=== PATIENT | female | born 1940 | race Caucasian/White ===

== ENCOUNTER 2018-11-21 00:12 | Inpatient (IN) | payer MEDICARE, OTHER ==
[~2018-11-21] VITALS: Ht 162.6 cm; Wt 64.0 kg
[2018-11-21] MEDS ORDERED: FLUO15OI TP (00:57)
[2018-11-21] MEDS ORDERED: PANT40TA2 PO (00:57)
[2018-11-21] MEDS ORDERED: MAGN400O6 PO (00:57)
[2018-11-21] MEDS ORDERED: SULF500T8 PO (00:57)
[2018-11-21] MEDS ORDERED: TIZA4TAB4 PO (00:57)
[2018-11-21] MEDS ORDERED: PSYL1CAP2 PO (00:57)
[2018-11-21] MEDS ORDERED: GLYC30DR4 OP (00:57)
[2018-11-21] MEDS ORDERED: TRIA15OI11 TOP (00:57)
[2018-11-21] MEDS ORDERED: UBID100C13 PO (00:57)
[2018-11-21] MEDS ORDERED: ACET325C5 PO (00:57)
[2018-11-21] MEDS ORDERED: MIRA25TA PO (00:57)
[2018-11-21] MEDS ORDERED: IRBE150T30 PO (00:57)
[2018-11-21] MEDS ORDERED: HYDR-3026 PO (00:57)
[2018-11-21] MEDS ORDERED: TIMO5DRO31 OP (00:57)
[2018-11-21] MEDS ORDERED: POLY17PO4 PO (00:57)
[2018-11-21] MEDS ORDERED: TRAM50TA2 PO (00:57)
[2018-11-21] MEDS ORDERED: CLOP75TA33 PO (00:57)
[2018-11-21] MEDS ORDERED: METO25TA6 PO (00:57)
[2018-11-21] MEDS ORDERED: AZAT50TA PO (00:57)
[2018-11-21] MEDS ORDERED: ASPI81TA31 PO (00:57)
[2018-11-21] MEDS ORDERED: [UNRECOGNIZED DRUG - CODE] PO (00:57)
[2018-11-21] MEDS ORDERED: DULO30CA51 PO (00:57)
[2018-11-21 01:24] LABS: CARBON DIOXIDE 29 mmol/L (21-32); CHLORIDE 99 mmol/L (98-107); GLUCOSE 98 mg/dL (74-106); POTASSIUM 4.8 mmol/L (3.5-5.1); UREA NITROGEN, BLOOD 25 mg/dL (7-18)
[2018-11-21 01:25] LABS: BASOPHILS % (AUTO) 0.9 % (0.0-2.0); EOSINOPHILS # (AUTO) 0.1 K/uL (0.0-0.7); EOSINOPHILS % (AUTO) 2.3 % (0.0-7.0); HEMATOCRIT 31.3 % (31.2-41.9); HEMOGLOBIN 10.7 g/dL (10.9-14.3); LYMPHOCYTES % (AUTO) 18.5 % (20.5-51.5); MEAN CORPUSCULAR HEMOGLOBIN 30.9 uug (24.7-32.8); MEAN CORPUSCULAR HGB CONC 34 g/dL (32.3-35.6); MEAN CORPUSCULAR VOLUME 90.6 fL (75.5-95.3); MONOCYTES # (AUTO) 0.7 K/uL (2.0-10.0); MONOCYTES % (AUTO) 13.2 % (0.0-11.0); NEUTROPHILS # (AUTO) 3.6 K/uL (1.8-8.9); NEUTROPHILS % (AUTO) 65.1 % (38.5-71.5); PLATELET COUNT (AUTO) 274 K/uL (179-408); RED BLOOD CELL COUNT(AUTO) 3.45 MIL/uL (3.63-4.92); WHITE BLOOD COUNT (AUTO) 5.5 K/uL (3.8-11.8)
[2018-11-21 01:40] LABS: ALANINE AMINOTRANSFERASE 22 U/L (14-59); ALKALINE PHOSPHATASE 54 U/L (50-136); ASPARTATE AMINOTRANSFERASE 16 U/L (15-37); BILIRUBIN,DIRECT 0.1 mg/dL (0.0-0.2); BILIRUBIN,TOTAL 0.2 mg/dL (0.2-1.0); TOTAL PROTEIN, SERUM 6.4 g/dL (6.4-8.2)
[2018-11-21] MEDS ORDERED: IV NORMAL SALINE 1000 ML BAG IV ONE (01:45)
[2018-11-21 01:49] LABS: ACETAMINOPHEN < 2.0 ug/mL (10-30)
[2018-11-21 01:51] LABS: THYROID STIMULATING HORMONE 6.233 mIU/mL (0.358-3.740)
[2018-11-21] MEDS ORDERED: LORAZEPAM 2 MG/1 ML VIAL ONE (02:24)
[2018-11-21] MEDS ORDERED: LORAZEPAM 2 MG/1 ML VIAL IV ONE (02:30)
--- NOTE | 2018-11-21 02:49 | NUR ---
Call placed to [employer], Delfino Garrett (SANDY) will be paged.
[2018-11-21] MEDS ORDERED: ACETAMINOPHEN 325 MG TABLET PO PRN (03:00)
[2018-11-21] MEDS ORDERED: MORPHINE SULFATE 4 MG/1 ML DISP.SYRIN IV PRN (03:00)
[2018-11-21] MEDS ORDERED: ONDANSETRON 4 MG/2 ML VIAL IV PRN (03:00)
[2018-11-21] MEDS ORDERED: LORAZEPAM 2 MG/1 ML VIAL IV PRN (03:00)
[2018-11-21] MEDS ORDERED: Z GUARD REMEDY PASTE 57 GM TUBE TOP PRN ×2 (03:00→20:00)
[2018-11-21] MEDS ORDERED: MAGNESIUM HYDROXIDE 30 ML LIQUID UDC PO PRN (03:00)
[2018-11-21] MEDS ORDERED: HYDROCODONE/APAP 5-325MG TABLET PO PRN (03:00)
--- NOTE | 2018-11-21 03:20 | NUR ---
Received patient via gurney accompanied by Brock from ED. Patient awake, alert and oriented x 4. Noted IV access on right arm, 20G patent and intact. Transferred to bed safely, placed tele monitor. Oriented to unit. Bed kept in low position, side rails up x 2, call light within reach. Noted patient was just given Ativan IV at ED, patient feel asleep after we settling down in the bed. Will continue to monitor.
--- NOTE | 2018-11-21 03:36 | NUR ---
Pt. admitted to TELE, under care of Delfino Garrett (SANDY) Belongs List completed
[2018-11-21] MEDS: IV NS 1000 ML 1,000 ML IV PRN ×2 (04:08→22:23)
[2018-11-21 06:08] VITALS: BP 147/84
--- NOTE | 2018-11-21 06:33 | NUR ---
No output noted this shift. Bladder scan performed with result as 304ml. No bladder distention noted, no bladder pain and patient states she does not feel the urge to void still. Noted need to send urine for testing, will endorse to next shift nurse. Patient with IV fluid infusing well at right arm IV access, infusing well. No complaints made. Ensured safety and comfort.
[2018-11-21 07:28] LABS: BASOPHILS % (AUTO) 0.6 % (0.0-2.0); EOSINOPHILS # (AUTO) 0.1 K/uL (0.0-0.7); EOSINOPHILS % (AUTO) 2.2 % (0.0-7.0); HEMATOCRIT 29.9 % (31.2-41.9); HEMOGLOBIN 10.3 g/dL (10.9-14.3); LYMPHOCYTES # (AUTO) 1.2 K/uL (20.0-40.0); LYMPHOCYTES % (AUTO) 20.4 % (20.5-51.5); MEAN CORPUSCULAR HEMOGLOBIN 31.1 uug (24.7-32.8); MEAN CORPUSCULAR HGB CONC 35 g/dL (32.3-35.6); MEAN CORPUSCULAR VOLUME 90.2 fL (75.5-95.3); MONOCYTES # (AUTO) 0.8 K/uL (2.0-10.0); MONOCYTES % (AUTO) 12.7 % (0.0-11.0); NEUTROPHILS # (AUTO) 3.8 K/uL (1.8-8.9); NEUTROPHILS % (AUTO) 64.1 % (38.5-71.5); PLATELET COUNT (AUTO) 265 K/uL (179-408); RED BLOOD CELL COUNT(AUTO) 3.32 MIL/uL (3.63-4.92)
[2018-11-21 07:58] LABS: ALANINE AMINOTRANSFERASE 15 U/L (14-59); ALKALINE PHOSPHATASE 48 U/L (50-136); ASPARTATE AMINOTRANSFERASE 22 U/L (15-37); BILIRUBIN,TOTAL 0.2 mg/dL (0.2-1.0); CARBON DIOXIDE 22 mmol/L (21-32); CHLORIDE 99 mmol/L (98-107); CHOLESTEROL 203 mg/dL (<200); CREATININE 0.8 mg/dL (0.6-1.3); GLUCOSE 98 mg/dL (74-106); HDL CHOLESTEROL 41 mg/dL (40-60); MAGNESIUM 2.1 mg/dL (1.8-2.4); PHOSPHOROUS 4.6 mg/dL (2.5-4.9); POTASSIUM 4.7 mmol/L (3.5-5.1); TRIGLYCERIDES 99 MG/DL (30-150); UREA NITROGEN, BLOOD 22 mg/dL (7-18)
[2018-11-21] MEDS: ENOXAPARIN SODIUM 40 MG/0.4 ML DISP.SYRIN SQ SCH (08:52)
[2018-11-21] MEDS ORDERED: PANTOPRAZOLE SODIUM 40 MG VIAL IV SCH (09:00)
[2018-11-21] MEDS ORDERED: ASPIRIN 81 MG TAB.CHEW PO ONE ×2 (09:00)
[2018-11-21 11:51] VITALS: BP 132/69
--- NOTE | 2018-11-21 12:16 | NUR ---
Hernández inserted with 500cc of clear yellow urine draining. UA sent to lab.
[2018-11-21] MEDS ORDERED: POLYVINYL ALCOHOL OPHT DROPS 15 ML BOTTLE EACHEYE PRN (14:30)
[2018-11-21] MEDS ORDERED: TIZANIDINE HCL 4 MG TABLET PO SCH (14:30)
[2018-11-21 15:29] VITALS: BP 151/67
[2018-11-21] MEDS ORDERED: TRIAMCINOLONE ACET 0.1% OINT 15 GM TUBE TOP SCH (17:00)
[2018-11-21] MEDS ORDERED: FLUOCINONIDE 0.05% OINT 15 GM TUBE TP SCH (17:00)
[2018-11-21] MEDS ORDERED: hydrOXYzine HCL 25 MG TABLET PO PRN (17:00)
[2018-11-21] MEDS: SULFASALAZINE 500 MG TABLET PO SCH (17:07)
[2018-11-21 19:13] LABS: *BILIRUBIN,URIN NEGATIVE (NEGATIVE); *BLOOD, URINE NEGATIVE (NEGATIVE); *CLARITY,URINE CLEAR (CLEAR); *COLOR,URINE YELLOW (YELLOW); *KETONES,URINE NEGATIVE (NEGATIVE); *UROBILINOGEN,URINE 0.2 E.U./dl (NORMAL); LEUKOCYTE ESTERASE ,URINE NEGATIVE (NEGATIVE); NITRITE, URINE NEGATIVE (NEGATIVE); PH,URINE 5.5 (5.0-8.0); UGLUCOSE NEGATIVE (NEGATIVE)
[2018-11-21 19:20] LABS: MUCUS,URINE MODERATE /LPF (0-FEW); SQUAMOUS EPITHELIAL CELL,UR FEW /HPF (NONE SEEN); WBC,URINE 0-3 /HPF (0-3)
--- NOTE | 2018-11-21 19:45 | NUR ---
RECEIVED PATIENT IN BED ALERT AWAKE, NO SOB NO CHEST PAIN NOTED, TELE MONITOR SINUS RHYTHM AT THIS TIME, VALERO CATH DRAINING WITH YELLOW COLOR URINE IN MODERATE AMOUNT, REORIENT PATIENT NOT TO GET OUT OF BED BY HER SELF, REORIENT PATIENT WITH THE CALL LIGHT. CONT TO MONITOR.
[2018-11-21] MEDS: TIMOLOL MALEATE 0.5% OPHT DROP 5 ML BOTTLE EACHEYE SCH (20:09)
[2018-11-21] MEDS: METOPROLOL TARTRATE 25 MG TABLET PO SCH (20:10)
[2018-11-21] MEDS: TRAMADOL HCL 50 MG TABLET PO SCH (20:14)
[2018-11-21 20:17] VITALS: BP 151/73
[2018-11-22] VITALS (7 sets, daily range): BP systolic 95–172; BP diastolic 59–72
--- NOTE | 2018-11-22 05:53 | NUR ---
PATIENT SLEPT MOST OF THE NIGHT NO SOB NO CHEST PAIN, NO COMPLAIN OF PAIN AT THIS TIME, VALERO CATH PATENT DRAINING WITH YELLOW COLOR URINE IN MODERATE AMOUNT, TELE MONITOR SINUS RHYTHM AT THIS TIME. CONT TO MONITOR.
[2018-11-22 06:48] LABS: BASOPHILS % (AUTO) 0.7 % (0.0-2.0); EOSINOPHILS # (AUTO) 0.2 K/uL (0.0-0.7); EOSINOPHILS % (AUTO) 3.3 % (0.0-7.0); LYMPHOCYTES # (AUTO) 1.1 K/uL (20.0-40.0); LYMPHOCYTES % (AUTO) 20.3 % (20.5-51.5); MEAN CORPUSCULAR HGB CONC 34 g/dL (32.3-35.6); MEAN CORPUSCULAR VOLUME 89.9 fL (75.5-95.3); MONOCYTES # (AUTO) 0.6 K/uL (2.0-10.0); MONOCYTES % (AUTO) 10.8 % (0.0-11.0); NEUTROPHILS # (AUTO) 3.5 K/uL (1.8-8.9); NEUTROPHILS % (AUTO) 64.9 % (38.5-71.5); PLATELET COUNT (AUTO) 292 K/uL (179-408); RED BLOOD CELL COUNT(AUTO) 3.56 MIL/uL (3.63-4.92); WHITE BLOOD COUNT (AUTO) 5.3 K/uL (3.8-11.8)
[2018-11-22 06:53] LABS: CARBON DIOXIDE 28 mmol/L (21-32); CHLORIDE 102 mmol/L (98-107); CHOLESTEROL 205 mg/dL (<200); CREATININE 0.7 mg/dL (0.6-1.3); GLUCOSE 98 mg/dL (74-106); HDL CHOLESTEROL 41 mg/dL (40-60); PHOSPHOROUS 3.3 mg/dL (2.5-4.9); POTASSIUM 4.9 mmol/L (3.5-5.1); TRIGLYCERIDES 147 MG/DL (30-150); UREA NITROGEN, BLOOD 12 mg/dL (7-18); URIC ACID 2.4 mg/dL (2.6-6.0)
[2018-11-22 07:01] LABS: THYROID STIMULATING HORMONE 2.668 mIU/mL (0.358-3.740)
[2018-11-22] MEDS: IV NS 1000 ML 1,000 ML IV PRN ×2 (08:47→22:13)
[2018-11-22] MEDS: TIMOLOL MALEATE 0.5% OPHT DROP 5 ML BOTTLE EACHEYE SCH ×2 (08:49→20:47)
[2018-11-22] MEDS: AZATHIOPRINE 50 MG TABLET PO SCH (08:50)
[2018-11-22] MEDS: SULFASALAZINE 500 MG TABLET PO SCH ×2 (08:50→17:32)
[2018-11-22] MEDS: DULOXETINE 30 MG CAPSULE.DR PO SCH (08:50)
[2018-11-22] MEDS: ASPIRIN 81 MG TAB.CHEW PO SCH (08:50)
[2018-11-22] MEDS: CLOPIDOGREL 75 MG TABLET PO SCH (08:51)
[2018-11-22] MEDS: MIRALAX 17 GM POWD.PACK PO SCH (08:51)
[2018-11-22] MEDS: PSYLLIUM SEED PACKET PO SCH (08:51)
[2018-11-22] MEDS: PANTOPRAZOLE SODIUM 40 MG TABLET.DR PO SCH (08:52)
[2018-11-22] MEDS: MULTIVITAMINS,THERAPEUTIC TABLET PO SCH (08:52)
[2018-11-22] MEDS: METOPROLOL TARTRATE 25 MG TABLET PO SCH ×2 (08:54→20:48)
[2018-11-22] MEDS ORDERED: ASPIRIN 81 MG TAB.CHEW PO SCH (09:00)
[2018-11-22] MEDS: ENOXAPARIN SODIUM 40 MG/0.4 ML DISP.SYRIN SQ SCH (09:05)
[2018-11-22] MEDS: LOSARTAN POTASSIUM 50 MG TABLET PO SCH (14:47)
--- NOTE | 2018-11-22 19:01 | NUR ---
PATIENT IS LYING IN BED AWAKE AND ALERT WITH PERIODS OF CONFUSION. PATIENT HAS LEFT FOREARM 22G RUNNING NS AT 75ML/HR. NO DISTRESS NOTED. PATIENT IS BED CONFINED WITH A VALERO CATHETER IN PLACE DRAINING. PATIENT IS ON ROOM AIR, NO OXYGEN NEEDED. CT RESULTS FROM [facility] ARE IN CHART, RECEIVED VIA FAX FOR REFINERY SUPERINTENDENT [place] TO REVIEW PLEASE ENDORSE TO NEXT SHIFT.
--- NOTE | 2018-11-22 20:00 | NUR ---
RECEIVED PATIENT AWAKE IN BED. A/O X2. FORGETFUL AT TIMES. DENIES PAIN AT THIS TIME. NO RESP. DISTRESS NOTED. VSS. IVF INFUSING WELL TO LEFT FA. BED ALARM ON FOR SAFETY. USHA Addendum: 11/23/18 at 0343 by SEKOU CONTRERAS LVN CALL LIGHT IN REACH. ALL NEEDS ATTENDED. WILL CONTINUE TO MONITOR AND ASSESS.
[2018-11-22] MEDS: TRAMADOL HCL 50 MG TABLET PO SCH (20:48)
[2018-11-23 05:04] VITALS: BP 120/72
--- NOTE | 2018-11-23 06:23 | NUR ---
PATIENT ASLEEP IN BED. EASILY AROUSABLE. SLEPT WELL. IVF INFUSING WELL. BED ALARM ON. CALL LIGHT IN REACH. ALL NEEDS ATTENDED. WILL CONTINUE TO MONITOR.
[2018-11-23 06:32] LABS: BASOPHILS % (AUTO) 0.8 % (0.0-2.0); EOSINOPHILS # (AUTO) 0.2 K/uL (0.0-0.7); EOSINOPHILS % (AUTO) 3.5 % (0.0-7.0); HEMATOCRIT 28.9 % (31.2-41.9); HEMOGLOBIN 10.1 g/dL (10.9-14.3); LYMPHOCYTES # (AUTO) 1.1 K/uL (20.0-40.0); LYMPHOCYTES % (AUTO) 22.3 % (20.5-51.5); MEAN CORPUSCULAR HEMOGLOBIN 31.2 uug (24.7-32.8); MEAN CORPUSCULAR HGB CONC 35 g/dL (32.3-35.6); MEAN CORPUSCULAR VOLUME 89.4 fL (75.5-95.3); MONOCYTES # (AUTO) 0.6 K/uL (2.0-10.0); MONOCYTES % (AUTO) 12.7 % (0.0-11.0); NEUTROPHILS # (AUTO) 2.9 K/uL (1.8-8.9); NEUTROPHILS % (AUTO) 60.7 % (38.5-71.5); PLATELET COUNT (AUTO) 268 K/uL (179-408); RED BLOOD CELL COUNT(AUTO) 3.23 MIL/uL (3.63-4.92); WHITE BLOOD COUNT (AUTO) 4.8 K/uL (3.8-11.8)
[2018-11-23 06:42] LABS: CARBON DIOXIDE 30 mmol/L (21-32); CHLORIDE 101 mmol/L (98-107); CREATININE 0.6 mg/dL (0.6-1.3); GLUCOSE 110 mg/dL (74-106); MAGNESIUM 2.1 mg/dL (1.8-2.4); PHOSPHOROUS 2.9 mg/dL (2.5-4.9); POTASSIUM 4.9 mmol/L (3.5-5.1); UREA NITROGEN, BLOOD 10 mg/dL (7-18)
[2018-11-23] MEDS: SULFASALAZINE 500 MG TABLET PO SCH ×2 (08:07→16:46)
[2018-11-23] MEDS: ASPIRIN 81 MG TAB.CHEW PO SCH (08:07)
[2018-11-23] MEDS: TIMOLOL MALEATE 0.5% OPHT DROP 5 ML BOTTLE EACHEYE SCH ×2 (08:07→21:42)
[2018-11-23] MEDS: DULOXETINE 30 MG CAPSULE.DR PO SCH (08:08)
[2018-11-23] MEDS: AZATHIOPRINE 50 MG TABLET PO SCH (08:08)
[2018-11-23] MEDS: PSYLLIUM SEED PACKET PO SCH (08:08)
[2018-11-23] MEDS: METOPROLOL TARTRATE 25 MG TABLET PO SCH ×2 (08:08→21:44)
[2018-11-23] MEDS: LOSARTAN POTASSIUM 50 MG TABLET PO SCH (08:08)
[2018-11-23] MEDS: CLOPIDOGREL 75 MG TABLET PO SCH (08:09)
[2018-11-23] MEDS: PANTOPRAZOLE SODIUM 40 MG TABLET.DR PO SCH (08:09)
[2018-11-23] MEDS: MIRALAX 17 GM POWD.PACK PO SCH (08:09)
[2018-11-23] MEDS: MULTIVITAMINS,THERAPEUTIC TABLET PO SCH (08:09)
[2018-11-23] MEDS: ENOXAPARIN SODIUM 40 MG/0.4 ML DISP.SYRIN SQ SCH (08:16)
[2018-11-23 10:49] VITALS: BP_SYST 163; BP_SYST 175; BP_SYST 178; BP_DIAS 65; BP_DIAS 67; BP_DIAS 73
[2018-11-23] MEDS: IV NS 1000 ML 1,000 ML IV PRN (11:17)
[2018-11-23] MEDS: DOCUSATE SODIUM 100 MG CAPSULE PO SCH ×2 (11:31→16:46)
[2018-11-23 11:44] VITALS: BP 118/73
[2018-11-23 15:42] VITALS: BP 114/68
--- NOTE | 2018-11-23 18:52 | NUR ---
PATIENT IS LYING IN BED, BED IS IN LOW LOCKED POSITION AND CALL LIGHT IS WITHIN REACH. PATIENT IS HAVING PERIODS OF CONFUSION, REORIENTED PATIENT TO SURROUNDINGS. PATIENT IS STABLE.
[2018-11-23 20:00] VITALS: BP 170/52
[2018-11-23] MEDS: TRAMADOL HCL 50 MG TABLET PO SCH (21:43)
[2018-11-24] MEDS: IV NS 1000 ML 1,000 ML IV PRN (00:43)
[2018-11-24 04:00] VITALS: BP 115/73
[2018-11-24 06:36] LABS: BASOPHILS % (AUTO) 0.7 % (0.0-2.0); EOSINOPHILS # (AUTO) 0.2 K/uL (0.0-0.7); EOSINOPHILS % (AUTO) 3.5 % (0.0-7.0); HEMATOCRIT 32.3 % (31.2-41.9); HEMOGLOBIN 11.3 g/dL (10.9-14.3); LYMPHOCYTES # (AUTO) 1.1 K/uL (20.0-40.0); LYMPHOCYTES % (AUTO) 19.2 % (20.5-51.5); MEAN CORPUSCULAR HEMOGLOBIN 31.3 uug (24.7-32.8); MEAN CORPUSCULAR HGB CONC 35 g/dL (32.3-35.6); MEAN CORPUSCULAR VOLUME 89.3 fL (75.5-95.3); MONOCYTES # (AUTO) 0.7 K/uL (2.0-10.0); MONOCYTES % (AUTO) 12.5 % (0.0-11.0); NEUTROPHILS # (AUTO) 3.6 K/uL (1.8-8.9); NEUTROPHILS % (AUTO) 64.1 % (38.5-71.5); PLATELET COUNT (AUTO) 295 K/uL (179-408); RED BLOOD CELL COUNT(AUTO) 3.62 MIL/uL (3.63-4.92); WHITE BLOOD COUNT (AUTO) 5.6 K/uL (3.8-11.8)
[2018-11-24 06:52] LABS: CARBON DIOXIDE 27 mmol/L (21-32); CHLORIDE 96 mmol/L (98-107); CREATININE 0.6 mg/dL (0.6-1.3); GLUCOSE 89 mg/dL (74-106); POTASSIUM 4.3 mmol/L (3.5-5.1); UREA NITROGEN, BLOOD 8 mg/dL (7-18)
[2018-11-24 07:56] VITALS: BP 164/78
[2018-11-24] MEDS: LOSARTAN POTASSIUM 50 MG TABLET PO SCH (08:01)
[2018-11-24] MEDS: METOPROLOL TARTRATE 25 MG TABLET PO SCH (08:01)
[2018-11-24] MEDS: ASPIRIN 81 MG TAB.CHEW PO SCH (08:01)
[2018-11-24] MEDS: TIMOLOL MALEATE 0.5% OPHT DROP 5 ML BOTTLE EACHEYE SCH (08:01)
[2018-11-24] MEDS: DOCUSATE SODIUM 100 MG CAPSULE PO SCH ×2 (08:02→16:13)
[2018-11-24] MEDS: MULTIVITAMINS,THERAPEUTIC TABLET PO SCH (08:02)
[2018-11-24] MEDS: DULOXETINE 30 MG CAPSULE.DR PO SCH (08:02)
[2018-11-24] MEDS: CLOPIDOGREL 75 MG TABLET PO SCH (08:02)
[2018-11-24] MEDS: PANTOPRAZOLE SODIUM 40 MG TABLET.DR PO SCH (08:02)
[2018-11-24] MEDS: SULFASALAZINE 500 MG TABLET PO SCH ×2 (08:03→16:13)
[2018-11-24] MEDS: PSYLLIUM SEED PACKET PO SCH (08:04)
[2018-11-24] MEDS: AZATHIOPRINE 50 MG TABLET PO SCH (08:04)
[2018-11-24] MEDS: MIRALAX 17 GM POWD.PACK PO SCH (08:05)
[2018-11-24] MEDS: ENOXAPARIN SODIUM 40 MG/0.4 ML DISP.SYRIN SQ SCH (08:06)
[2018-11-24] MEDS ORDERED: DOCU100C36 PO (10:25)
[2018-11-24 11:25] VITALS: BP 127/62
--- NOTE | 2018-11-24 14:30 | NUR ---
PATIENT DISCHARGED TO ARU. D/C INSTRUCTIONS/PT TEACHINGS PROVIDED. PATIENT VERBALIZED UNDERSTANDING. BELONGING LIST SIGNED AND ACCOUNTED FOR.
[2018-11-24 15:30] VITALS: BP 115/52
--- NOTE | 2018-11-24 16:30 | NUR ---
REPORT GIVEN TO RN SOLU.
--- NOTE | 2018-11-24 16:45 | NUR ---
PATIENT DISCHARGED TO ARU. PT LEFT THE UNIT VIA WHEELCHAIR, ACCOMPANIED BY DRIVER GUIDE AND RN.
== END 2018-11-24 16:35 | DRG 683 ==
LOC: ER 00:15 → TELE 03:03 → MED 11-22 11:38
PROVIDERS: ADMIT Nurse Practitioner Acute Care; ATTEND Nurse Practitioner Acute Care
DX: N17.0 Acute kidney failure with tubular necrosis (principal); G91.9 Hydrocephalus, unspecified; E87.1 Hypo-osmolality and hyponatremia; E44.1 Mild protein-calorie malnutrition; G93.49 Other encephalopathy; S00.03XD Contusion of scalp, subsequent encounter; W19.XXXD Unspecified fall, subsequent encounter; Z98.2 Presence of cerebrospinal fluid drainage device; M06.9 Rheumatoid arthritis, unspecified; Z88.0 Allergy status to penicillin; E78.5 Hyperlipidemia, unspecified; Z68.24 Body mass index [BMI] 24.0-24.9, adult; I25.10 Atherosclerotic heart disease of native coronary artery without angina pectoris; D63.8 Anemia in other chronic diseases classified elsewhere; F03.90 Unspecified dementia, unspecified severity, without behavioral disturbance, psychotic disturbance, mood disturbance, and anxiety; K59.00 Constipation, unspecified; I95.1 Orthostatic hypotension; M81.0 Age-related osteoporosis without current pathological fracture; R29.6 Repeated falls; I35.0 Nonrheumatic aortic (valve) stenosis; E86.1 Hypovolemia; M19.90 Unspecified osteoarthritis, unspecified site; Z79.02 Long term (current) use of antithrombotics/antiplatelets; Z79.82 Long term (current) use of aspirin
CPT/HCPCS: 36415; 70030-TC; 71045; 83735; 84100; 84300; 84443; 84550; 85025; 85730; 87086; 93005; 93307; 97110; 97116; 97165; 97530; 97535; A4663; C9113; G0378; G0480-TC; J1650; J2060; J7030; J7500

== ENCOUNTER 2018-11-24 12:39 | Inpatient (IN) | payer MEDICARE, OTHER ==
[~2018-11-24] VITALS: Ht 162.6 cm; Wt 64.0 kg
[~2018-11-24 12:39] MED LIST: ACET325C5 PO; ASPI81TA31 PO; AZAT50TA PO; CLOP75TA33 PO; DOCU100C36 PO; DULO30CA51 PO; FLUO15OI TP; GLYC30DR4 OP; HYDR-3026 PO; IRBE150T30 PO; MAGN400O6 PO; METO25TA6 PO; MIRA25TA PO; PANT40TA2 PO; POLY17PO4 PO; PSYL1CAP2 PO; SULF500T8 PO; TIMO5DRO31 OP; TIZA4TAB4 PO; TRAM50TA2 PO; TRIA15OI11 TOP; UBID100C13 PO; [UNRECOGNIZED DRUG - CODE] PO
[2018-11-24] MEDS ORDERED: Z GUARD REMEDY PASTE 57 GM TUBE TOP PRN ×2 (17:00→17:15)
--- NOTE | 2018-11-24 18:40 | NUR ---
patient arrived to unit at 1640 from Med-surg via wheelchair, Vitals: 158/75, 68 heart rate, 100% O2 on room air, 17 respirations, Alert and orient to self only redness noted to the right heel, picture taken, no complaints of pain, no signs of distress noted, call light in reach, MD Ruano and SANDY Love notified of patients arrival, shook catheter patent, IV noted to left wrist,
[2018-11-24] MEDS ORDERED: hydrOXYzine HCL 25 MG TABLET PO PRN (19:15)
[2018-11-24] MEDS ORDERED: Medication Not On Formulary EA (Acetaminophen (Tylenol) 650 MG) PO SCH (19:15)
[2018-11-24 19:39] VITALS: BP 155/68
[2018-11-24 20:00] VITALS: BP 125/68
[2018-11-24] MEDS ORDERED: POLYVINYL ALCOHOL OPHT DROPS 15 ML BOTTLE EACHEYE PRN (20:00)
[2018-11-24] MEDS ORDERED: ACETAMINOPHEN 650 MG/20.3 ML LIQUID UDC PO PRN (20:00)
[2018-11-24] MEDS ORDERED: [UNRECOGNIZED DRUG - OTHER] OP SCH (21:00)
[2018-11-24] MEDS ORDERED: PROPYLENE GLYCOL OP SCH (21:00)
[2018-11-24] MEDS ORDERED: GLYCERIN OP SCH (21:00)
[2018-11-24] MEDS: TIMOLOL MALEATE 0.5% OPHT DROP 5 ML BOTTLE EACHEYE SCH (21:15)
[2018-11-25] MEDS: PANTOPRAZOLE SODIUM 40 MG TABLET.DR PO SCH (06:27)
[2018-11-25] MEDS: ACETAMINOPHEN 325 MG TABLET PO PRN ×3 (06:27→23:04)
[2018-11-25] MEDS: MAGNESIUM HYDROXIDE 30 ML LIQUID UDC PO PRN (06:36)
[2018-11-25 06:41] VITALS: BP 136/65
--- NOTE | 2018-11-25 06:52 | NUR ---
Patient slept comfortably throughout the night. No acute distress. No SOB. No c/o pain and discomfort. Hernández catheter patent and intact. Draining jh yellow urine. Kept clean and dry. All needs attended to promptly. Call light within reach. Will continue to monitor.
[2018-11-25] MEDS: ASPIRIN 81 MG TAB.CHEW PO SCH (08:49)
[2018-11-25] MEDS: DOCUSATE SODIUM 100 MG CAPSULE PO SCH ×2 (08:49→17:03)
[2018-11-25] MEDS: CLOPIDOGREL 75 MG TABLET PO SCH (08:49)
[2018-11-25] MEDS: METOPROLOL TARTRATE 25 MG TABLET PO SCH ×2 (08:50→17:00)
[2018-11-25] MEDS: MULTIVITAMINS,THERAPEUTIC TABLET PO SCH (08:50)
[2018-11-25] MEDS: TIMOLOL MALEATE 0.5% OPHT DROP 5 ML BOTTLE EACHEYE SCH ×2 (08:50→21:14)
[2018-11-25] MEDS: DULOXETINE 30 MG CAPSULE.DR PO SCH (08:50)
[2018-11-25] MEDS: MIRALAX 17 GM POWD.PACK PO SCH (08:50)
[2018-11-25] MEDS: AZATHIOPRINE 50 MG TABLET PO SCH (08:51)
[2018-11-25] MEDS: SULFASALAZINE 500 MG TABLET PO SCH ×2 (08:51→17:03)
[2018-11-25] MEDS: TIZANIDINE HCL 4 MG TABLET PO PRN (08:51)
[2018-11-25] MEDS: PSYLLIUM SEED PACKET PO SCH (08:53)
[2018-11-25 09:00] VITALS: BP 129/78
[2018-11-25] MEDS ORDERED: [UNRECOGNIZED DRUG - OTHER] PO SCH (09:00)
[2018-11-25] MEDS ORDERED: TRIAMCINOLONE ACET 0.1% OINT 15 GM TUBE TOP SCH (09:00)
[2018-11-25] MEDS ORDERED: CA CARBONATE PO SCH (09:00)
[2018-11-25] MEDS ORDERED: FLUOCINONIDE 0.05% OINT 15 GM TUBE TP SCH (09:00)
[2018-11-25] MEDS ORDERED: PSYLLIUM HUSK PO SCH (09:00)
[2018-11-25] MEDS ORDERED: MULTIVITAMIN PO SCH (09:00)
--- NOTE | 2018-11-25 09:00 | NUR ---
Received patient, awake, alert x3. Not in any form of distress, denies any pain at the moment. With intact G22 over left forearm. With intact and patent Hernández Catheter draining dark yellow colored urine. Denies any dizziness, headache or chest pains. Baseline LOC, no confusion noted at this time.
[2018-11-25] MEDS: LOSARTAN POTASSIUM 50 MG TABLET PO SCH (10:17)
--- NOTE | 2018-11-25 10:45 | NUR ---
Up with physical therapy, tolerating well. With tolerable pain over lower back and lower extremities. PRN Zanaflex given. Decreased blood pressure, 99/59, held Cozaar for now, patient asymptomatic, no dizziness, SOB or chest pains noted.
--- NOTE | 2018-11-25 13:45 | NUR ---
Patient claimed she was in pain and cannot have anything to eat at the moment. Encouraged small frequent meals. PRN Tylenol given.
[2018-11-25] MEDS: LIDOCAINE 5% PATCH TD SCH (13:50)
[2018-11-25 17:00] VITALS: BP 105/54
--- NOTE | 2018-11-25 18:27 | NUR ---
Patient complained of pain repositioned and offered warm pack. Patient still with poor oral intake and refused dinner. Encouraged to drink fluids as tolerated and explained importance of good oral intake, but patient still refused dinner.
--- NOTE | 2018-11-25 19:00 | NUR ---
Resting comfortably in bed. Denies any pain/discomforts at this time. She claimed hot pack on her back is sufficient to relieve pain at this time. Removed bedpan, no BM. Instructed patient to call when needed. F/C intact, patent draining clear yellow urine output. Safety measure and fall precaution maintained. Continue care as planned.
[2018-11-25 19:57] VITALS: BP 154/64
[2018-11-25] MEDS: TRAMADOL HCL 50 MG TABLET PO PRN (21:15)
--- NOTE | 2018-11-25 21:17 | NUR ---
Complaint of low back pain, Tramadol given as ordered and needed. Will monitor.
--- NOTE | 2018-11-25 22:20 | NUR ---
Sleeping at this time. Pain medication effective.
--- NOTE | 2018-11-25 23:05 | NUR ---
Complaint of headache, Tylenol given as ordered and needed. Will monitor.
--- NOTE | 2018-11-26 | NUR ---
Sleeping soundly on rounds. No s/s of pain/discomforts at this time.
[2018-11-26] MEDS: ACETAMINOPHEN 325 MG TABLET PO PRN (05:26)
[2018-11-26 05:33] VITALS: BP 117/72
--- NOTE | 2018-11-26 05:58 | NUR ---
Shift End Report: VS WNL. Slept in between care. Complaint of headache once, and low back pain twice with moderate effect. Instructed patient proper body alignment and positioning. All needs attended and met. F/C intact and patent with clear jh urine output. No fall/injury. Continue care as planned. No significant event reported all night.
[2018-11-26] MEDS: PANTOPRAZOLE SODIUM 40 MG TABLET.DR PO SCH (06:18)
[2018-11-26 07:50] LABS: CARBON DIOXIDE 28 mmol/L (21-32); CHLORIDE 98 mmol/L (98-107); CREATININE 0.7 mg/dL (0.6-1.3); GLUCOSE 101 mg/dL (74-106); POTASSIUM 4.6 mmol/L (3.5-5.1); UREA NITROGEN, BLOOD 17 mg/dL (7-18)
[2018-11-26 08:00] VITALS: BP 130/72
[2018-11-26] MEDS: LIDOCAINE 5% PATCH TD SCH (08:45)
[2018-11-26] MEDS: DULOXETINE 30 MG CAPSULE.DR PO SCH (08:46)
[2018-11-26] MEDS: ASPIRIN 81 MG TAB.CHEW PO SCH (08:46)
[2018-11-26] MEDS: DOCUSATE SODIUM 100 MG CAPSULE PO SCH ×2 (08:47→16:31)
[2018-11-26] MEDS: MULTIVITAMINS,THERAPEUTIC TABLET PO SCH (08:47)
[2018-11-26] MEDS: METOPROLOL TARTRATE 25 MG TABLET PO SCH ×2 (08:47→16:31)
[2018-11-26] MEDS: CLOPIDOGREL 75 MG TABLET PO SCH (08:47)
[2018-11-26] MEDS: SULFASALAZINE 500 MG TABLET PO SCH ×2 (08:48→16:30)
[2018-11-26] MEDS: PSYLLIUM SEED PACKET PO SCH (08:48)
[2018-11-26] MEDS: MIRALAX 17 GM POWD.PACK PO SCH (08:48)
[2018-11-26] MEDS: TIMOLOL MALEATE 0.5% OPHT DROP 5 ML BOTTLE EACHEYE SCH ×2 (08:49→20:11)
[2018-11-26] MEDS: AZATHIOPRINE 50 MG TABLET PO SCH (08:49)
[2018-11-26] MEDS: LOSARTAN POTASSIUM 50 MG TABLET PO SCH (08:49)
--- NOTE | 2018-11-26 12:37 | NUR ---
Received patient awake in stable condition. On therapy for ambulation and ADL ability. Continue pain management for chronic back pain. not in distress. will continue monitor
--- NOTE | 2018-11-26 13:22 | NUR ---
INTERDISCIPLINARY TEAM CONFERENCE
[2018-11-26 17:33] VITALS: BP 115/68
--- NOTE | 2018-11-26 19:30 | NUR ---
Patient received in bed. Alert and verbally responsive. Able to make needs known. Denies any pain and discomfort. No acute distress. No SOB. Kept clean and dry. Hernández catheter patent and intact. Draining clear yellow urine. All needs attended to promptly. Call light within reach. Will continue to monitor.
[2018-11-26 20:00] VITALS: BP_SYST 165; BP_SYST 172; BP_DIAS 65; BP_DIAS 70
--- NOTE | 2018-11-26 20:00 | NUR ---
Patient's BP noted to be 172/70 with HR 67 on Left arm. BP on R arm noted to be 165/65, HR 66. Patient verbalizes she feels fine. Asymptomatic at this time. No c/o N/V, no dizziness, No c/o pain and discomfort. No acute distress. Called EPIC, awaiting call back from MILITARY POLICE OFFICER application trainer. All needs attended to promptly. Call light within reach. Will continue to monitor.
[2018-11-26] MEDS: DONEPEZIL 5 MG TABLET PO SCH (20:10)
[2018-11-26 23:15] VITALS: BP 123/73
[2018-11-26] MEDS ORDERED: hydrALAZINE HCL 25 MG TABLET PO ONE (23:15)
--- NOTE | 2018-11-26 23:15 | NUR ---
Spoke with Dale Love PLASTIC PARTS FABRICATOR TRIMMER. Made aware of patient's BP with new orders for Hydralazine 25mg PO x1. PLASTIC PARTS FABRICATOR TRIMMER made aware that patient is now in bed and asleep. Had no c/o pain and discomfort. No N/V, No c/o dizziness. Per PLASTIC PARTS FABRICATOR TRIMMER to just re-check BP again before giving Hydralazine. Re-checked BP and it is now 123/73, HR 80. Patient is sleeping comfortably. Hydralazine not given. Will continue to monitor patient.
[2018-11-27 04:00] VITALS: BP 139/62
[2018-11-27] MEDS: PANTOPRAZOLE SODIUM 40 MG TABLET.DR PO SCH (06:33)
[2018-11-27 07:40] VITALS: BP 159/61
[2018-11-27] MEDS: DULOXETINE 30 MG CAPSULE.DR PO SCH (08:43)
[2018-11-27] MEDS: CLOPIDOGREL 75 MG TABLET PO SCH (08:43)
[2018-11-27] MEDS: MULTIVITAMINS,THERAPEUTIC TABLET PO SCH (08:43)
[2018-11-27] MEDS: LOSARTAN POTASSIUM 50 MG TABLET PO SCH (08:43)
[2018-11-27] MEDS: ASPIRIN 81 MG TAB.CHEW PO SCH (08:44)
[2018-11-27] MEDS: DOCUSATE SODIUM 100 MG CAPSULE PO SCH ×2 (08:44→17:05)
[2018-11-27] MEDS: METOPROLOL TARTRATE 25 MG TABLET PO SCH ×2 (08:44→17:11)
[2018-11-27] MEDS: MIRALAX 17 GM POWD.PACK PO SCH (08:45)
[2018-11-27] MEDS: AZATHIOPRINE 50 MG TABLET PO SCH (08:45)
[2018-11-27] MEDS: TIMOLOL MALEATE 0.5% OPHT DROP 5 ML BOTTLE EACHEYE SCH ×2 (08:47→20:46)
[2018-11-27] MEDS: LIDOCAINE 5% PATCH TD SCH (08:47)
[2018-11-27] MEDS: PSYLLIUM SEED PACKET PO SCH (08:47)
[2018-11-27] MEDS: SULFASALAZINE 500 MG TABLET PO SCH ×2 (08:47→17:05)
--- NOTE | 2018-11-27 09:52 | NUR ---
Received patient awake in bed in stable condition. Seen and examined by SANDY Love with ordered remove shook catheter and monitor urine output. Continue therapy for ambulation, ADL and transfer ability. not in distress. will continue monitor
--- NOTE | 2018-11-27 12:57 | NUR ---
F/C D/C ORDERED. ALISON WELL .REMINDED HER TO CALL FOR ASSIST TO GO TO THE BR. 200ML RODERICK COLORED URINE TAKEN AWAY. IV ALSO REMOVED #22G CATHETER REMOVED INTACT. NO INFILTRATION/PHLEBITIS NOTED
[2018-11-27] MEDS ORDERED: hydrALAZINE HCL 25 MG TABLET PO ONE (18:45)
--- NOTE | 2018-11-27 18:49 | NUR ---
B/P ELEVATED PUMP SERVICE SUPERVISOR BATES CALLED GAVE ORDER FOR HYDRALAZINE 25MG NOW.
--- NOTE | 2018-11-27 19:00 | NUR ---
Watching TV during initial rounds. AAO x 2-3. Reorient on time at this time. Denies any pain/discomforts. Safety measures and fall precaution maintained. Continue current plan of care.
[2018-11-27 20:00] VITALS: BP 116/71
[2018-11-27] MEDS: DONEPEZIL 5 MG TABLET PO SCH (20:46)
--- NOTE | 2018-11-27 21:26 | NUR ---
Assisted patient to the bathroom with walker. Patient not steady on her feet. Not safe to ambulate yet. Poor tolerance /endurance on activity especially on ambulation. Bedside commode provided for elimination and safety due to poor endurance on ambulation. Patient refused bedpan/diaper offered. Close supervision /monitoring required for safety.
[2018-11-28] VITALS (8 sets, daily range): BP systolic 142–185; BP diastolic 52–86
[2018-11-28] MEDS: ACETAMINOPHEN 325 MG TABLET PO PRN ×2 (03:06→15:43)
--- NOTE | 2018-11-28 06:00 | NUR ---
Patient finally agreed using the bedpan. Voided well. Self help encouraged and able to return demonstration.
--- NOTE | 2018-11-28 06:13 | NUR ---
Shift End Report: Slept late. SBP slightly elevated on the 150's. Denies s/s of Hypertension. No complaint of pain/discomforts. No fall/injury. All needs attended and met. No significant event reported all night. Continue current rehab plan of care.
[2018-11-28] MEDS: PANTOPRAZOLE SODIUM 40 MG TABLET.DR PO SCH (06:19)
[2018-11-28] MEDS: CLOPIDOGREL 75 MG TABLET PO SCH (07:49)
[2018-11-28] MEDS: ASPIRIN 81 MG TAB.CHEW PO SCH (07:49)
[2018-11-28] MEDS: TIMOLOL MALEATE 0.5% OPHT DROP 5 ML BOTTLE EACHEYE SCH ×2 (07:49→21:12)
[2018-11-28] MEDS: METOPROLOL TARTRATE 25 MG TABLET PO SCH ×2 (07:49→17:10)
[2018-11-28] MEDS: LOSARTAN POTASSIUM 50 MG TABLET PO SCH (07:49)
[2018-11-28] MEDS: MULTIVITAMINS,THERAPEUTIC TABLET PO SCH (09:51)
[2018-11-28] MEDS: SULFASALAZINE 500 MG TABLET PO SCH ×2 (09:51→17:10)
[2018-11-28] MEDS: DULOXETINE 30 MG CAPSULE.DR PO SCH (09:51)
[2018-11-28] MEDS: TIZANIDINE HCL 4 MG TABLET PO PRN (09:51)
[2018-11-28] MEDS: DOCUSATE SODIUM 100 MG CAPSULE PO SCH ×2 (09:52→17:10)
[2018-11-28] MEDS: AZATHIOPRINE 50 MG TABLET PO SCH (09:52)
[2018-11-28] MEDS: PSYLLIUM SEED PACKET PO SCH (09:52)
[2018-11-28] MEDS: LIDOCAINE 5% PATCH TD SCH (09:52)
[2018-11-28] MEDS: MIRALAX 17 GM POWD.PACK PO SCH (09:52)
[2018-11-28] MEDS ORDERED: LOSARTAN POTASSIUM 50 MG TABLET PO ONE (12:30)
[2018-11-28] MEDS: hydrALAZINE HCL 25 MG TABLET PO PRN (17:09)
[2018-11-28] MEDS: DONEPEZIL 5 MG TABLET PO SCH (21:12)
[2018-11-28] MEDS: TRAMADOL HCL 50 MG TABLET PO PRN (21:47)
[2018-11-29 05:14] VITALS: BP 158/66
[2018-11-29] MEDS: PANTOPRAZOLE SODIUM 40 MG TABLET.DR PO SCH (06:02)
--- NOTE | 2018-11-29 06:16 | NUR ---
Received pt in bed, AAO x 2-3 at beginning of shift. No acute distress noted. C/O back pain 6/10 pain scale. PRN Ultram given with good effect, tolerated well. All needs attended to and met accordingly. All due medications given as ordered, tolerated well. Kept clean and dry, good pericare rendered. Slept comfortably throughout shift with no further complaints of pain or discomfort. VSS. All safety measures and fall precautions maintained. Call light within reach. Will endorse accordingly.
[2018-11-29 07:17] LABS: BASOPHILS % (AUTO) 0.7 % (0.0-2.0); EOSINOPHILS # (AUTO) 0.2 K/uL (0.0-0.7); EOSINOPHILS % (AUTO) 3.3 % (0.0-7.0); HEMATOCRIT 33.7 % (31.2-41.9); HEMOGLOBIN 11.5 g/dL (10.9-14.3); LYMPHOCYTES # (AUTO) 1.4 K/uL (20.0-40.0); LYMPHOCYTES % (AUTO) 25.3 % (20.5-51.5); MEAN CORPUSCULAR HEMOGLOBIN 30.8 uug (24.7-32.8); MEAN CORPUSCULAR HGB CONC 34 g/dL (32.3-35.6); MEAN CORPUSCULAR VOLUME 89.8 fL (75.5-95.3); MONOCYTES # (AUTO) 0.7 K/uL (2.0-10.0); MONOCYTES % (AUTO) 12.9 % (0.0-11.0); NEUTROPHILS # (AUTO) 3.2 K/uL (1.8-8.9); NEUTROPHILS % (AUTO) 57.8 % (38.5-71.5); PLATELET COUNT (AUTO) 366 K/uL (179-408); RED BLOOD CELL COUNT(AUTO) 3.75 MIL/uL (3.63-4.92); WHITE BLOOD COUNT (AUTO) 5.5 K/uL (3.8-11.8)
[2018-11-29 07:32] LABS: CARBON DIOXIDE 29 mmol/L (21-32); CHLORIDE 96 mmol/L (98-107); CREATININE 0.7 mg/dL (0.6-1.3); GLUCOSE 97 mg/dL (74-106); PHOSPHOROUS 4.6 mg/dL (2.5-4.9); POTASSIUM 5.9 mmol/L (3.5-5.1); UREA NITROGEN, BLOOD 14 mg/dL (7-18)
[2018-11-29 08:00] VITALS: BP 151/68
[2018-11-29] MEDS: ASPIRIN 81 MG TAB.CHEW PO SCH (08:27)
[2018-11-29] MEDS: DULOXETINE 30 MG CAPSULE.DR PO SCH (08:27)
[2018-11-29] MEDS: ACETAMINOPHEN 325 MG TABLET PO PRN ×2 (08:27→13:58)
[2018-11-29] MEDS: MULTIVITAMINS,THERAPEUTIC TABLET PO SCH (08:27)
[2018-11-29] MEDS: METOPROLOL TARTRATE 25 MG TABLET PO SCH ×2 (08:27→16:26)
[2018-11-29] MEDS: CLOPIDOGREL 75 MG TABLET PO SCH (08:28)
[2018-11-29] MEDS: MIRALAX 17 GM POWD.PACK PO SCH (08:28)
[2018-11-29] MEDS: DOCUSATE SODIUM 100 MG CAPSULE PO SCH ×2 (08:28→16:30)
[2018-11-29] MEDS: LIDOCAINE 5% PATCH TD SCH (08:28)
[2018-11-29] MEDS: LOSARTAN POTASSIUM 50 MG TABLET PO SCH (08:28)
[2018-11-29] MEDS: SULFASALAZINE 500 MG TABLET PO SCH ×2 (08:28→16:30)
[2018-11-29] MEDS: AZATHIOPRINE 50 MG TABLET PO SCH (08:29)
[2018-11-29] MEDS: PSYLLIUM SEED PACKET PO SCH (08:29)
[2018-11-29] MEDS: TIMOLOL MALEATE 0.5% OPHT DROP 5 ML BOTTLE EACHEYE SCH ×2 (08:29→21:25)
--- NOTE | 2018-11-29 08:30 | NUR ---
Received patient awake, alert x 3. With pain over lower back, rated as 8/10 PRN Tylenol given. Not in any form of distress. No headache or dizziness, with baseline LOC. Morning care done, per-care done.
--- NOTE | 2018-11-29 10:51 | NUR ---
Up with physial therapy, still with lower back pain but tolerable. Was able to ambulate.
[2018-11-29] MEDS ORDERED: FUROSEMIDE 40 MG TABLET PO ONE (12:30)
[2018-11-29] MEDS: TIZANIDINE HCL 4 MG TABLET PO PRN (16:30)
[2018-11-29 16:39] VITALS: BP 155/63
[2018-11-29] MEDS: OXYCODONE/APAP 5-325 MG TABLET PO PRN (16:55)
[2018-11-29 19:54] VITALS: BP 130/58
[2018-11-29] MEDS: TRAMADOL HCL 50 MG TABLET PO PRN (21:25)
[2018-11-29] MEDS: DONEPEZIL 5 MG TABLET PO SCH (21:25)
[2018-11-30] MEDS: OXYCODONE/APAP 5-325 MG TABLET PO PRN ×3 (00:18→16:41)
--- NOTE | 2018-11-30 00:29 | NUR ---
Received pt in bed, appearing to be asleep but easily arousable to verbal stimuli and light touch. No acute distress noted. Verbally responsive and able to make needs known. Denies pain or discomfort at this time. All safety measures and fall precautions maintained. Call light and all personal belongings within reach. Will continue to monitor.
[2018-11-30 04:00] VITALS: BP 117/63
[2018-11-30] MEDS: PANTOPRAZOLE SODIUM 40 MG TABLET.DR PO SCH (06:14)
[2018-11-30] MEDS: ACETAMINOPHEN 325 MG TABLET PO PRN ×2 (07:40→14:27)
[2018-11-30 07:47] LABS: BASOPHILS % (AUTO) 0.6 % (0.0-2.0); EOSINOPHILS # (AUTO) 0.2 K/uL (0.0-0.7); EOSINOPHILS % (AUTO) 3.2 % (0.0-7.0); HEMATOCRIT 33.5 % (31.2-41.9); HEMOGLOBIN 11.4 g/dL (10.9-14.3); LYMPHOCYTES # (AUTO) 1.3 K/uL (20.0-40.0); LYMPHOCYTES % (AUTO) 24.1 % (20.5-51.5); MEAN CORPUSCULAR HEMOGLOBIN 30.5 uug (24.7-32.8); MEAN CORPUSCULAR HGB CONC 34 g/dL (32.3-35.6); MEAN CORPUSCULAR VOLUME 89.9 fL (75.5-95.3); MONOCYTES # (AUTO) 0.7 K/uL (2.0-10.0); MONOCYTES % (AUTO) 13.2 % (0.0-11.0); NEUTROPHILS # (AUTO) 3.2 K/uL (1.8-8.9); NEUTROPHILS % (AUTO) 58.9 % (38.5-71.5); PLATELET COUNT (AUTO) 384 K/uL (179-408); RED BLOOD CELL COUNT(AUTO) 3.73 MIL/uL (3.63-4.92); WHITE BLOOD COUNT (AUTO) 5.4 K/uL (3.8-11.8)
[2018-11-30 08:03] LABS: CARBON DIOXIDE 27 mmol/L (21-32); CHLORIDE 95 mmol/L (98-107); CREATININE 0.9 mg/dL (0.6-1.3); GLUCOSE 100 mg/dL (74-106); PHOSPHOROUS 4.9 mg/dL (2.5-4.9); POTASSIUM 4.3 mmol/L (3.5-5.1); UREA NITROGEN, BLOOD 25 mg/dL (7-18)
[2018-11-30] MEDS: MIRALAX 17 GM POWD.PACK PO SCH (08:07)
[2018-11-30] MEDS: PSYLLIUM SEED PACKET PO SCH (08:08)
[2018-11-30] MEDS: CLOPIDOGREL 75 MG TABLET PO SCH (08:59)
[2018-11-30] MEDS: DOCUSATE SODIUM 100 MG CAPSULE PO SCH ×2 (08:59→16:35)
[2018-11-30] MEDS: LOSARTAN POTASSIUM 50 MG TABLET PO SCH (09:00)
[2018-11-30] MEDS: METOPROLOL TARTRATE 25 MG TABLET PO SCH ×2 (09:00→16:35)
[2018-11-30] MEDS: TIMOLOL MALEATE 0.5% OPHT DROP 5 ML BOTTLE EACHEYE SCH ×2 (09:01→20:29)
[2018-11-30] MEDS: LIDOCAINE 5% PATCH TD SCH (09:01)
[2018-11-30] MEDS: SULFASALAZINE 500 MG TABLET PO SCH ×2 (09:01→16:34)
[2018-11-30] MEDS: AZATHIOPRINE 50 MG TABLET PO SCH (09:01)
[2018-11-30] MEDS: DULOXETINE 30 MG CAPSULE.DR PO SCH (09:01)
[2018-11-30] MEDS: ASPIRIN 81 MG TAB.CHEW PO SCH (09:01)
[2018-11-30] MEDS: MULTIVITAMINS,THERAPEUTIC TABLET PO SCH (09:01)
[2018-11-30] MEDS ORDERED: ONDANSETRON ODT 4 MG TAB.RAPDIS SL PRN (09:15)
[2018-11-30 09:35] VITALS: BP 110/56
--- NOTE | 2018-11-30 10:58 | NUR ---
Received patient awake in stable condition. c/o of lower back pain. Applied routine lidocaine patch and tylenol 325mg 2 tabs PRN given. After 1 hour, still in pain. MD Ruano notified and ordered increase frequency of percocet 5/325mg from BID to every 6 hours- given. vomited small amount of food. SANDY Maxwell made aware ordered zofran 4mg SL every 6hours for nausea/vomiting. Consumed only 15% of meal intake despite of encouragement and education. SANDY Maxwell aware. will continue monitor
--- NOTE | 2018-11-30 11:44 | NUR ---
Geodetic Engineer Consult: SW received consult from RN Jagruti and Director, Sherrill Penaloza re: concerns of patient's family. SW placed call to patient's daughter, Kelly Chavez ([phone]) to discuss areas of concern. SW provided opportunity for pt's daughter to express concerns and ventilate feelings about pt's current health condition. SW provided pt's dtr with emotional support and counseling. Daughter expressed that she would like to speak with a therapist herself, and asked SW to email her with resources for community mental health clinics. Pt's daughter also expressed concern about pt's Medi-[place] status. SW left a message for Alva in the [facility] office ([phone]) to collaborate with pt's daughter. SW met with patient at bedside to provide support and assess for needs. Patient is a 78 year-old female, and per chart, she was admitted to ARU s/p several falls at her [facility] ([facility]) and due to functional impairment, weakness and imbalance for intensive rehabilitation and functional zoroastrian. Patient is alert and oriented x4 and stated that she is experiencing a lot of pain in her lower back. Patient's mood seemed euthymic with a congruent affect; however, her face grimaced occasionally throughout the interview due to pain. Patient was admitted to ARU on 11/24/18. Pt stated that she enjoys the PT/OT she is receiving in ARU, but "just couldn't do it today because of the pain I'm in." Patient expressed that she enjoys reading to help get her mind of the pain. Patient reported that she has a strong support system with her daughter, Kelly Chavez, who she described as a "jewel of a relationship." Patient expressed gratitude that her daughter visits her daily in the hospital. Patient also stated that she has a son who she described as having a "good relationship" with him. Patient described her goal in ARU is to "get better and walk out of here." SW engaged in active listening and provided pt with emotional support in regards to the reason for her being admitted into ARU. SW collaborated and consulted with pt's RN, Jagruti, about patient's back pain. SW will continue to be available to speak with pt and her family throughout her stay in ARU.
[2018-11-30] MEDS: MEGESTROL ACETATE 20 MG TABLET PO SCH (16:35)
--- NOTE | 2018-11-30 19:00 | NUR ---
Received patient in bed, awake, no s/s of respiratory distress, expressed tolerable pain at this time but claiming she feels miserable. Turned and repositioned for comfort with patient assist. Bedpan offered, unable to void this time. Refused diaper offered. Safety measure and fall precaution maintained. Continue care as planned.
[2018-11-30] MEDS: DONEPEZIL 5 MG TABLET PO SCH (20:29)
[2018-11-30] MEDS: TRAMADOL HCL 50 MG TABLET PO PRN (20:30)
[2018-11-30 20:33] VITALS: BP 134/52
[2018-12-01] MEDS: MAGNESIUM HYDROXIDE 30 ML LIQUID UDC PO PRN (03:58)
[2018-12-01 05:17] VITALS: BP 144/53
--- NOTE | 2018-12-01 05:50 | NUR ---
Patient complaining of bladder discomforts, bladder scan performed, obtained 447 cc, reported to Nikhil Andres NP with order to insert shook catheter and obtain urine for UA and C/S
--- NOTE | 2018-12-01 06:13 | NUR ---
Hernández catheter inserted aseptically, obtained UA and urine culture specimen and sent to lab as ordered. Patient fairly tolerated the procedure. Obtained clear jh urine in qs.
[2018-12-01] MEDS: PANTOPRAZOLE SODIUM 40 MG TABLET.DR PO SCH (06:19)
[2018-12-01 07:12] LABS: *BILIRUBIN,URIN NEGATIVE (NEGATIVE); *BLOOD, URINE NEGATIVE (NEGATIVE); *CLARITY,URINE CLEAR (CLEAR); *COLOR,URINE YELLOW (YELLOW); *KETONES,URINE NEGATIVE (NEGATIVE); *UROBILINOGEN,URINE 0.2 E.U./dl (NORMAL); LEUKOCYTE ESTERASE ,URINE NEGATIVE (NEGATIVE); NITRITE, URINE NEGATIVE (NEGATIVE); PH,URINE 5.5 (5.0-8.0); UGLUCOSE NEGATIVE (NEGATIVE)
[2018-12-01 07:43] LABS: BACTERIA,URINE FEW /HPF (NONE SEEN); RBC,URINE NONE SEEN /HPF (0-3); SQUAMOUS EPITHELIAL CELL,UR MODERATE /HPF (NONE SEEN); WBC,URINE 0-3 /HPF (0-3)
[2018-12-01 08:13] LABS: BASOPHILS % (AUTO) 0.7 % (0.0-2.0); EOSINOPHILS # (AUTO) 0.1 K/uL (0.0-0.7); EOSINOPHILS % (AUTO) 2.4 % (0.0-7.0); HEMATOCRIT 34.8 % (31.2-41.9); LYMPHOCYTES % (AUTO) 16.6 % (20.5-51.5); MEAN CORPUSCULAR HGB CONC 35 g/dL (32.3-35.6); MEAN CORPUSCULAR VOLUME 89.9 fL (75.5-95.3); MONOCYTES # (AUTO) 0.7 K/uL (2.0-10.0); NEUTROPHILS # (AUTO) 4.3 K/uL (1.8-8.9); NEUTROPHILS % (AUTO) 69.3 % (38.5-71.5); PLATELET COUNT (AUTO) 403 K/uL (179-408); RED BLOOD CELL COUNT(AUTO) 3.87 MIL/uL (3.63-4.92); WHITE BLOOD COUNT (AUTO) 6.3 K/uL (3.8-11.8)
[2018-12-01 08:22] LABS: CARBON DIOXIDE 31 mmol/L (21-32); CHLORIDE 96 mmol/L (98-107); CREATININE 0.8 mg/dL (0.6-1.3); GLUCOSE 109 mg/dL (74-106); POTASSIUM 5.4 mmol/L (3.5-5.1); UREA NITROGEN, BLOOD 22 mg/dL (7-18)
[2018-12-01] MEDS: ASPIRIN 81 MG TAB.CHEW PO SCH (08:50)
[2018-12-01] MEDS: TIMOLOL MALEATE 0.5% OPHT DROP 5 ML BOTTLE EACHEYE SCH ×2 (08:50→20:21)
[2018-12-01] MEDS: MULTIVITAMINS,THERAPEUTIC TABLET PO SCH (08:51)
[2018-12-01] MEDS: METOPROLOL TARTRATE 25 MG TABLET PO SCH ×2 (08:51→16:51)
[2018-12-01] MEDS: LOSARTAN POTASSIUM 50 MG TABLET PO SCH (08:51)
[2018-12-01] MEDS: DOCUSATE SODIUM 100 MG CAPSULE PO SCH ×2 (08:51→16:51)
[2018-12-01] MEDS: DULOXETINE 30 MG CAPSULE.DR PO SCH (08:51)
[2018-12-01] MEDS: LIDOCAINE 5% PATCH TD SCH (08:51)
[2018-12-01] MEDS: CLOPIDOGREL 75 MG TABLET PO SCH (08:51)
[2018-12-01] MEDS: MIRALAX 17 GM POWD.PACK PO SCH (08:52)
[2018-12-01] MEDS: SULFASALAZINE 500 MG TABLET PO SCH ×2 (08:52→16:53)
[2018-12-01] MEDS: MEGESTROL ACETATE 20 MG TABLET PO SCH ×2 (08:52→16:52)
[2018-12-01] MEDS: PSYLLIUM SEED PACKET PO SCH (08:52)
[2018-12-01] MEDS: AZATHIOPRINE 50 MG TABLET PO SCH (08:53)
--- NOTE | 2018-12-01 09:00 | NUR ---
Patient awake, alert, not in any form of acute distress. She denies any pain or discomfort at this time. Administered due medications and patient tolerated well. Assisted with her needs. Call light and frequently used items placed within reach.
[2018-12-01 09:09] VITALS: BP 154/67
[2018-12-01] MEDS: FUROSEMIDE 20 MG TABLET PO SCH (13:03)
[2018-12-01 16:23] VITALS: BP 106/60
[2018-12-01 17:23] LABS: *POTASSIUM RNDM,URINE 81 mmol/L (25-125)
[2018-12-01] MEDS: DONEPEZIL 5 MG TABLET PO SCH (20:20)
[2018-12-01 20:56] VITALS: BP 123/57
[2018-12-02 04:51] VITALS: BP 110/67
[2018-12-02] MEDS: PANTOPRAZOLE SODIUM 40 MG TABLET.DR PO SCH (06:49)
--- NOTE | 2018-12-02 06:53 | NUR ---
Shift End Report: VS stable. No complaint presented all night. Slept well. Assisted and attended all her needs. No fall/ injury. No significant event reported. Continue current rehab plan of care.
[2018-12-02 07:16] LABS: BASOPHILS % (AUTO) 0.7 % (0.0-2.0); EOSINOPHILS # (AUTO) 0.2 K/uL (0.0-0.7); EOSINOPHILS % (AUTO) 2.4 % (0.0-7.0); HEMATOCRIT 34.2 % (31.2-41.9); HEMOGLOBIN 11.8 g/dL (10.9-14.3); LYMPHOCYTES # (AUTO) 1.2 K/uL (20.0-40.0); LYMPHOCYTES % (AUTO) 17.9 % (20.5-51.5); MEAN CORPUSCULAR HEMOGLOBIN 31.1 uug (24.7-32.8); MEAN CORPUSCULAR HGB CONC 35 g/dL (32.3-35.6); MEAN CORPUSCULAR VOLUME 90.2 fL (75.5-95.3); MONOCYTES # (AUTO) 0.8 K/uL (2.0-10.0); MONOCYTES % (AUTO) 12.7 % (0.0-11.0); NEUTROPHILS # (AUTO) 4.4 K/uL (1.8-8.9); NEUTROPHILS % (AUTO) 66.3 % (38.5-71.5); PLATELET COUNT (AUTO) 391 K/uL (179-408); WHITE BLOOD COUNT (AUTO) 6.6 K/uL (3.8-11.8)
[2018-12-02 07:31] LABS: CARBON DIOXIDE 30 mmol/L (21-32); CHLORIDE 94 mmol/L (98-107); CREATININE 0.8 mg/dL (0.6-1.3); GLUCOSE 105 mg/dL (74-106); MAGNESIUM 2.4 mg/dL (1.8-2.4); PHOSPHOROUS 3.7 mg/dL (2.5-4.9); POTASSIUM 5.1 mmol/L (3.5-5.1); UREA NITROGEN, BLOOD 28 mg/dL (7-18)
[2018-12-02 08:00] VITALS: BP 143/68
[2018-12-02 08:06] LABS: CORTISOL 9.7 ug/dL (.)
[2018-12-02] MEDS: TIMOLOL MALEATE 0.5% OPHT DROP 5 ML BOTTLE EACHEYE SCH ×2 (08:53→20:51)
[2018-12-02] MEDS: MIRALAX 17 GM POWD.PACK PO SCH (08:54)
[2018-12-02] MEDS: MULTIVITAMINS,THERAPEUTIC TABLET PO SCH (08:54)
[2018-12-02] MEDS: DULOXETINE 30 MG CAPSULE.DR PO SCH (08:54)
[2018-12-02] MEDS: DOCUSATE SODIUM 100 MG CAPSULE PO SCH ×2 (08:54→16:20)
[2018-12-02] MEDS: LIDOCAINE 5% PATCH TD SCH (08:54)
[2018-12-02] MEDS: FUROSEMIDE 20 MG TABLET PO SCH (08:55)
[2018-12-02] MEDS: CLOPIDOGREL 75 MG TABLET PO SCH (08:55)
[2018-12-02] MEDS: PSYLLIUM SEED PACKET PO SCH (08:55)
[2018-12-02] MEDS: ASPIRIN 81 MG TAB.CHEW PO SCH (08:55)
[2018-12-02] MEDS: METOPROLOL TARTRATE 25 MG TABLET PO SCH ×2 (08:55→16:22)
[2018-12-02] MEDS: LOSARTAN POTASSIUM 50 MG TABLET PO SCH (08:55)
[2018-12-02] MEDS: MEGESTROL ACETATE 20 MG TABLET PO SCH ×2 (08:56→16:22)
[2018-12-02] MEDS: SULFASALAZINE 500 MG TABLET PO SCH ×2 (08:56→16:21)
[2018-12-02] MEDS: AZATHIOPRINE 50 MG TABLET PO SCH (08:56)
[2018-12-02 10:06] LABS: BILIRUBIN,DIRECT 0.1 mg/dL (0.0-0.2); BILIRUBIN,TOTAL 0.3 mg/dL (0.2-1.0); TOTAL PROTEIN, SERUM 6.8 g/dL (6.4-8.2)
--- NOTE | 2018-12-02 11:45 | NUR ---
Social work note: benzene worker spoke with patient daughter, Kelly Chavez [[phone]], regarding patient Med-[employer] benefits. Per Kelly, she wanted to know if her mother was still eligible for Medi-[employer] benefits after selling her home and now having more money in he account. benzene worker advised gregor to contact major case detective listed on letter from [employer]. Kelly agreed and states she will call the major case detective. benzene worker will continue to remain available to patient and family as needed and provide any emotional or supportive counseling needed.
[2018-12-02 16:00] VITALS: BP 115/51
[2018-12-02] MEDS: ACETAMINOPHEN 325 MG TABLET PO PRN (20:50)
[2018-12-02] MEDS: DONEPEZIL 5 MG TABLET PO SCH (20:50)
[2018-12-02 22:30] VITALS: BP 122/56
[2018-12-03] MEDS: OXYCODONE/APAP 5-325 MG TABLET PO PRN ×2 (00:02→06:10)
[2018-12-03] MEDS: PANTOPRAZOLE SODIUM 40 MG TABLET.DR PO SCH (06:09)
[2018-12-03 06:15] VITALS: BP 149/60
--- NOTE | 2018-12-03 06:46 | NUR ---
awake alert and oriented.slept at short intervals. said couldn't sleep much. complained of lower back pain, percocet given with slight relief. repositioned for comfort turned from sides to sides. shook catheter intact draining yellow urine. I & O monitor will monitor for pain. percocet 1tab given again this am for lower back pain. needs attended. will relay to the incoming nurse regarding pain management maybe a stronger pain relief. fall precautions maintained.
[2018-12-03] MEDS: MIRALAX 17 GM POWD.PACK PO SCH (09:00)
[2018-12-03] MEDS: PSYLLIUM SEED PACKET PO SCH (09:00)
[2018-12-03] MEDS: FUROSEMIDE 20 MG TABLET PO SCH (09:09)
[2018-12-03] MEDS: DOCUSATE SODIUM 100 MG CAPSULE PO SCH ×2 (09:09→17:30)
[2018-12-03] MEDS: SULFASALAZINE 500 MG TABLET PO SCH ×2 (09:09→17:30)
[2018-12-03] MEDS: MULTIVITAMINS,THERAPEUTIC TABLET PO SCH (09:09)
[2018-12-03] MEDS: MEGESTROL ACETATE 20 MG TABLET PO SCH ×2 (09:09→17:30)
[2018-12-03] MEDS: CLOPIDOGREL 75 MG TABLET PO SCH (09:09)
[2018-12-03] MEDS: DULOXETINE 30 MG CAPSULE.DR PO SCH (09:09)
[2018-12-03] MEDS: ASPIRIN 81 MG TAB.CHEW PO SCH (09:10)
[2018-12-03] MEDS: AZATHIOPRINE 50 MG TABLET PO SCH (09:10)
[2018-12-03] MEDS: TIMOLOL MALEATE 0.5% OPHT DROP 5 ML BOTTLE EACHEYE SCH ×2 (09:10→20:31)
[2018-12-03] MEDS: LIDOCAINE 5% PATCH TD SCH (09:11)
[2018-12-03] MEDS: LOSARTAN POTASSIUM 50 MG TABLET PO SCH (09:11)
[2018-12-03] MEDS: METOPROLOL TARTRATE 25 MG TABLET PO SCH ×2 (09:11→17:31)
[2018-12-03] MEDS: ACETAMINOPHEN 325 MG TABLET PO PRN ×2 (12:15→18:42)
--- NOTE | 2018-12-03 13:21 | NUR ---
INTERDISCIPLINARY TEAM CONFERENCE
[2018-12-03 20:00] VITALS: BP 143/59
[2018-12-03] MEDS: DONEPEZIL 5 MG TABLET PO SCH (20:31)
[2018-12-04 04:00] VITALS: BP 153/63
[2018-12-04] MEDS: PANTOPRAZOLE SODIUM 40 MG TABLET.DR PO SCH (06:21)
[2018-12-04] MEDS: DOCUSATE SODIUM 100 MG CAPSULE PO SCH ×2 (08:45→16:49)
[2018-12-04] MEDS: MIRALAX 17 GM POWD.PACK PO SCH (08:45)
[2018-12-04] MEDS: CLOPIDOGREL 75 MG TABLET PO SCH (08:45)
[2018-12-04] MEDS: ASPIRIN 81 MG TAB.CHEW PO SCH (08:46)
[2018-12-04] MEDS: MULTIVITAMINS,THERAPEUTIC TABLET PO SCH (08:46)
[2018-12-04] MEDS: DULOXETINE 30 MG CAPSULE.DR PO SCH (08:46)
[2018-12-04] MEDS: FUROSEMIDE 20 MG TABLET PO SCH (08:47)
[2018-12-04] MEDS: LOSARTAN POTASSIUM 50 MG TABLET PO SCH (08:47)
[2018-12-04] MEDS: METOPROLOL TARTRATE 25 MG TABLET PO SCH ×2 (08:47→16:49)
[2018-12-04] MEDS: LIDOCAINE 5% PATCH TD SCH (08:47)
[2018-12-04] MEDS: MEGESTROL ACETATE 20 MG TABLET PO SCH ×2 (08:48→16:50)
[2018-12-04] MEDS: AZATHIOPRINE 50 MG TABLET PO SCH (08:48)
[2018-12-04] MEDS: SULFASALAZINE 500 MG TABLET PO SCH ×2 (08:48→17:15)
[2018-12-04] MEDS: PSYLLIUM SEED PACKET PO SCH (08:48)
[2018-12-04] MEDS: TIMOLOL MALEATE 0.5% OPHT DROP 5 ML BOTTLE EACHEYE SCH ×2 (08:49→20:25)
[2018-12-04] MEDS ORDERED: LACTULOSE 20 G/30 ML LIQUID UDC PO ONE (16:00)
--- NOTE | 2018-12-04 18:00 | NUR ---
Patient remains alert, not in any form of acute distress, not in any form of acute distress. She denies any pain or discomfort at this time. Call light and frequently used items placed within reach. Assisted to her needs. Patient refused to take the lactulose as ordered, Gonzalo Padilla DNP aware.
[2018-12-04] MEDS: ACETAMINOPHEN 325 MG TABLET PO PRN (18:27)
[2018-12-04] MEDS: DONEPEZIL 5 MG TABLET PO SCH (20:25)
[2018-12-04 20:53] VITALS: BP 152/57
[2018-12-04] MEDS: OXYCODONE/APAP 5-325 MG TABLET PO PRN (21:05)
--- NOTE | 2018-12-04 22:34 | NUR ---
Received pt in bed, AAO x 3 laying comfortably. No acute distress noted. Verbally responsive and able to make needs known. C/O 8/10 pain on her lower back. PRN Percocet given as ordered, tolerated well with good effect. All due medications given as ordered and tolerated well. All safety measures and fall precautions maintained. Call light and all personal belongings within reach. Hernández catheter noted draining well into bag clear, yellow urine. Will continue to monitor.
[2018-12-05 04:45] VITALS: BP 120/50
[2018-12-05] MEDS: OXYCODONE/APAP 5-325 MG TABLET PO PRN (05:42)
[2018-12-05] MEDS: PANTOPRAZOLE SODIUM 40 MG TABLET.DR PO SCH (06:06)
[2018-12-05 06:57] LABS: BASOPHILS % (AUTO) 0.8 % (0.0-2.0); EOSINOPHILS # (AUTO) 0.2 K/uL (0.0-0.7); EOSINOPHILS % (AUTO) 3.9 % (0.0-7.0); HEMATOCRIT 32.1 % (31.2-41.9); HEMOGLOBIN 11.1 g/dL (10.9-14.3); LYMPHOCYTES # (AUTO) 1.3 K/uL (20.0-40.0); LYMPHOCYTES % (AUTO) 21.6 % (20.5-51.5); MEAN CORPUSCULAR HEMOGLOBIN 31.1 uug (24.7-32.8); MEAN CORPUSCULAR HGB CONC 35 g/dL (32.3-35.6); MEAN CORPUSCULAR VOLUME 89.7 fL (75.5-95.3); MONOCYTES # (AUTO) 0.9 K/uL (2.0-10.0); MONOCYTES % (AUTO) 14.8 % (0.0-11.0); NEUTROPHILS # (AUTO) 3.5 K/uL (1.8-8.9); NEUTROPHILS % (AUTO) 58.9 % (38.5-71.5); PLATELET COUNT (AUTO) 370 K/uL (179-408); RED BLOOD CELL COUNT(AUTO) 3.58 MIL/uL (3.63-4.92); WHITE BLOOD COUNT (AUTO) 5.9 K/uL (3.8-11.8)
[2018-12-05 07:00] VITALS: BP 121/49
[2018-12-05 07:10] LABS: CARBON DIOXIDE 29 mmol/L (21-32); CHLORIDE 99 mmol/L (98-107); CREATININE 0.8 mg/dL (0.6-1.3); GLUCOSE 99 mg/dL (74-106); MAGNESIUM 2.3 mg/dL (1.8-2.4); PHOSPHOROUS 3.7 mg/dL (2.5-4.9); UREA NITROGEN, BLOOD 26 mg/dL (7-18)
[2018-12-05] MEDS: MULTIVITAMINS,THERAPEUTIC TABLET PO SCH (08:26)
[2018-12-05] MEDS: SULFASALAZINE 500 MG TABLET PO SCH ×2 (08:27→17:22)
[2018-12-05] MEDS: DOCUSATE SODIUM 100 MG CAPSULE PO SCH ×2 (08:27→17:24)
[2018-12-05] MEDS: METOPROLOL TARTRATE 25 MG TABLET PO SCH ×2 (08:28→17:24)
[2018-12-05] MEDS: CLOPIDOGREL 75 MG TABLET PO SCH (08:29)
[2018-12-05] MEDS: MEGESTROL ACETATE 20 MG TABLET PO SCH ×2 (08:29→17:20)
[2018-12-05] MEDS: DULOXETINE 30 MG CAPSULE.DR PO SCH (08:29)
[2018-12-05] MEDS: ASPIRIN 81 MG TAB.CHEW PO SCH (08:29)
[2018-12-05] MEDS: AZATHIOPRINE 50 MG TABLET PO SCH (08:29)
[2018-12-05] MEDS: TIMOLOL MALEATE 0.5% OPHT DROP 5 ML BOTTLE EACHEYE SCH ×2 (08:36→20:38)
[2018-12-05] MEDS: FUROSEMIDE 20 MG TABLET PO SCH (08:54)
[2018-12-05] MEDS: LOSARTAN POTASSIUM 50 MG TABLET PO SCH (08:55)
[2018-12-05] MEDS: PSYLLIUM SEED PACKET PO SCH (08:56)
[2018-12-05] MEDS: MIRALAX 17 GM POWD.PACK PO SCH (08:56)
[2018-12-05] MEDS: LIDOCAINE 5% PATCH TD SCH (09:54)
[2018-12-05] MEDS: TRAMADOL HCL 50 MG TABLET PO PRN (12:55)
[2018-12-05 16:01] VITALS: BP 132/61
--- NOTE | 2018-12-05 19:35 | NUR ---
RECEIVED PATIENT AWAKE IN BED WATCHING TV. A/O X4. VERY PLEASANT WHEN APPROACHED. DENIES ANY PAIN AT THIS TIME. NO RESP. DISTRESS NOTED. ABDUCTION PILLOW IN PLACE. SWELLING NOTED TO LEFT FOOT. NEURO-VASCULAR CHECKS WNL. SENSATION PRESENT. DRESSING NOTED TO LEFT HIP, C/D/I. BED ALARM ON. CALL LIGHT IN REACH. ALL NEEDS ATTENDED. WILL CONTINUE TO MONITOR AND ASSESS. Addendum: 12/05/18 at 2001 by SEKOU CONTRERAS LVN PLEASE DISREGARD. INCORRECT PATIENT.
--- NOTE | 2018-12-05 19:45 | NUR ---
RECEIVED PATIENT AWAKE IN BED. PATIENT IS A/O X4. VERY PLEASANT WHEN APPROACHED. DENIES ANY PAIN OR DISCOMFORT AT THIS TIME. NO RESP. DISTRESS NOTED. F/C INTACT AND DRAINING WELL. BED ALARM ON. CALL LIGHT IN REACH. ALL NEEDS ATTENDED. WILL CONTINUE TO MONITOR AND ASSESS.
[2018-12-05 20:24] VITALS: BP 110/52
[2018-12-05] MEDS: DONEPEZIL 5 MG TABLET PO SCH (20:38)
[2018-12-06] MEDS: hydrALAZINE HCL 25 MG TABLET PO PRN (04:56)
[2018-12-06 05:00] VITALS: BP 164/67
--- NOTE | 2018-12-06 05:00 | NUR ---
PATIENT AWAKE IN BED. BP 164/67. ALL OTHER VSS. PATIENT GIVEN HYDRALAZINE 25MG PO PRN FOR ELEVATED BP. WILL CONTINUE TO MONITOR AND ASSESS.
--- NOTE | 2018-12-06 05:30 | NUR ---
PATIENT GIVEN PERCOCET 1 TAB PO PRN FOR PAIN, MID-LOWER BACK. BED ALARM ON. CALL LIGHT IN REACH. ALL NEEDS ATTENDED. WILL CONTINUE TO MONITOR AND ASSESS.
[2018-12-06] MEDS: OXYCODONE/APAP 5-325 MG TABLET PO PRN (05:34)
[2018-12-06] MEDS: PANTOPRAZOLE SODIUM 40 MG TABLET.DR PO SCH (06:08)
--- NOTE | 2018-12-06 07:56 | NUR ---
Patient noted resting in bed, complaints of stomach upset, assisted to sitting positon in bed to eat breakfast, no signs of distress noted, call light in reach, bed locked and in lowest positon, all needs met at this time.
[2018-12-06 08:00] VITALS: BP 151/60
[2018-12-06] MEDS: MULTIVITAMINS,THERAPEUTIC TABLET PO SCH (08:06)
[2018-12-06] MEDS: DOCUSATE SODIUM 100 MG CAPSULE PO SCH ×2 (08:06→17:17)
[2018-12-06] MEDS: ASPIRIN 81 MG TAB.CHEW PO SCH (08:07)
[2018-12-06] MEDS: DULOXETINE 30 MG CAPSULE.DR PO SCH (08:07)
[2018-12-06] MEDS: FUROSEMIDE 20 MG TABLET PO SCH (08:07)
[2018-12-06] MEDS: CLOPIDOGREL 75 MG TABLET PO SCH (08:07)
[2018-12-06] MEDS: LOSARTAN POTASSIUM 50 MG TABLET PO SCH (08:07)
[2018-12-06] MEDS: METOPROLOL TARTRATE 25 MG TABLET PO SCH ×2 (08:09→17:00)
[2018-12-06] MEDS: SULFASALAZINE 500 MG TABLET PO SCH ×2 (08:09→17:18)
[2018-12-06] MEDS: MEGESTROL ACETATE 20 MG TABLET PO SCH ×2 (08:09→17:18)
[2018-12-06] MEDS: AZATHIOPRINE 50 MG TABLET PO SCH (08:09)
[2018-12-06] MEDS: PSYLLIUM SEED PACKET PO SCH (08:10)
[2018-12-06] MEDS: MIRALAX 17 GM POWD.PACK PO SCH (08:10)
[2018-12-06] MEDS: LIDOCAINE 5% PATCH TD SCH (08:10)
[2018-12-06] MEDS: TIMOLOL MALEATE 0.5% OPHT DROP 5 ML BOTTLE EACHEYE SCH ×2 (09:52→20:28)
[2018-12-06 16:00] VITALS: BP 101/48
[2018-12-06 19:25] VITALS: BP 113/42
--- NOTE | 2018-12-06 19:25 | NUR ---
Patient received in bed-resting. A/O x4. No C/O pain or SOB at this time. Neuro checks in left hand WNL. Sensation present in left hand. Dressing in left hip resent, C/D/I. Bed alarm intact. Assisted with evening ADLs. Call light and frequently used items within reach. Will continue to monitor.
[2018-12-06] MEDS: DONEPEZIL 5 MG TABLET PO SCH (20:27)
[2018-12-07] MEDS: OXYCODONE/APAP 5-325 MG TABLET PO PRN ×2 (02:19→09:28)
[2018-12-07 04:42] VITALS: BP 154/70
[2018-12-07] MEDS: PANTOPRAZOLE SODIUM 40 MG TABLET.DR PO SCH (06:20)
--- NOTE | 2018-12-07 06:45 | NUR ---
Upon emptying the catheter this morning small clots were found in the Hernández catheter. SANDY Andres contact and stat UA ordered. Specimen collected and sent to the lab. Will continue to monitor.
[2018-12-07 07:01] LABS: *BILIRUBIN,URIN NEGATIVE (NEGATIVE); *BLOOD, URINE 1+ (NEGATIVE); *CLARITY,URINE CLEAR (CLEAR); *COLOR,URINE YELLOW (YELLOW); *KETONES,URINE TRACE (NEGATIVE); *UROBILINOGEN,URINE 0.2 E.U./dl (NORMAL); LEUKOCYTE ESTERASE ,URINE NEGATIVE (NEGATIVE); NITRITE, URINE NEGATIVE (NEGATIVE); UGLUCOSE NEGATIVE (NEGATIVE)
--- NOTE | 2018-12-07 07:06 | NUR ---
Patient slept well throughout the night. All due medications given-tolerated well. PRN pain medications given at 0215 for back pain. Hernández catheter bag emptied with yellow urine and small clots scarcely floating around int he bag. Call light and frequently used items within reach. Will endorse to oncoming shift accordingly.
[2018-12-07 07:15] LABS: SQUAMOUS EPITHELIAL CELL,UR FEW /HPF (NONE SEEN)
[2018-12-07 07:17] LABS: RBC,URINE 20-50 /HPF (0-3)
[2018-12-07 07:18] LABS: BACTERIA,URINE NONE SEEN /HPF (NONE SEEN)
[2018-12-07 08:00] VITALS: BP 112/64
[2018-12-07] MEDS: TIMOLOL MALEATE 0.5% OPHT DROP 5 ML BOTTLE EACHEYE SCH ×2 (08:39→20:11)
[2018-12-07] MEDS: LIDOCAINE 5% PATCH TD SCH (08:41)
[2018-12-07] MEDS: MIRALAX 17 GM POWD.PACK PO SCH (08:42)
[2018-12-07] MEDS: ASPIRIN 81 MG TAB.CHEW PO SCH (08:42)
[2018-12-07] MEDS: DOCUSATE SODIUM 100 MG CAPSULE PO SCH ×2 (08:42→16:41)
[2018-12-07] MEDS: MULTIVITAMINS,THERAPEUTIC TABLET PO SCH (08:42)
[2018-12-07] MEDS: DULOXETINE 30 MG CAPSULE.DR PO SCH (08:43)
[2018-12-07] MEDS: CLOPIDOGREL 75 MG TABLET PO SCH (08:44)
[2018-12-07] MEDS: FUROSEMIDE 20 MG TABLET PO SCH (08:44)
[2018-12-07] MEDS: AZATHIOPRINE 50 MG TABLET PO SCH (08:44)
[2018-12-07] MEDS: METOPROLOL TARTRATE 25 MG TABLET PO SCH ×2 (08:45→16:44)
[2018-12-07] MEDS: MEGESTROL ACETATE 20 MG TABLET PO SCH ×2 (08:45→16:45)
[2018-12-07] MEDS: SULFASALAZINE 500 MG TABLET PO SCH ×2 (08:46→17:07)
[2018-12-07] MEDS: PSYLLIUM SEED PACKET PO SCH (08:46)
[2018-12-07] MEDS: LOSARTAN POTASSIUM 50 MG TABLET PO SCH (09:35)
--- NOTE | 2018-12-07 09:41 | NUR ---
Patient awake, alert, on bed not in any form of acute distress. She complained of low back back, given PRN pain medication as ordered. Due medications administered and patient tolerated well. Assisted her to the bedside commode and put her back to bed. Call light and frequently used items placed within reach.
[2018-12-07 16:00] VITALS: BP 116/48
--- NOTE | 2018-12-07 19:00 | NUR ---
Patient remains alert, no complain of any discomfort. Hernández catheter in place and patent draining clear yellow urine. Needs attended to. Will endorse accordingly to shift boss nurse.
[2018-12-07 20:00] VITALS: BP 122/59
[2018-12-07] MEDS: DONEPEZIL 5 MG TABLET PO SCH (20:11)
[2018-12-08 04:00] VITALS: BP 162/65
[2018-12-08] MEDS: hydrALAZINE HCL 25 MG TABLET PO PRN (04:49)
[2018-12-08 06:00] VITALS: BP 154/65
--- NOTE | 2018-12-08 06:00 | NUR ---
Patient slept comfortably throughout the night. No c/o pain and discomfort. At 4am BP noted to be 162/65 with HR of 61. Asymptomatic. No c/o N/V. No c/o dizziness. Hydralazine 25mg PO give as ordered for SBP > 160. Rechecked BP, noted to be 154/65. Patient resting comfortably. Hernández catheter patent and intact. Draining jh colored urine. Kept clean and dry. All needs attended to promptly. Call light within reach. Will continue to monitor.
[2018-12-08] MEDS: PANTOPRAZOLE SODIUM 40 MG TABLET.DR PO SCH (06:25)
[2018-12-08 08:14] VITALS: BP 174/75
[2018-12-08] MEDS: AZATHIOPRINE 50 MG TABLET PO SCH (08:38)
[2018-12-08] MEDS: ASPIRIN 81 MG TAB.CHEW PO SCH (08:38)
[2018-12-08] MEDS: CLOPIDOGREL 75 MG TABLET PO SCH (08:38)
[2018-12-08] MEDS: SULFASALAZINE 500 MG TABLET PO SCH ×2 (08:38→16:51)
[2018-12-08] MEDS: DOCUSATE SODIUM 100 MG CAPSULE PO SCH ×2 (08:38→16:50)
[2018-12-08] MEDS: DULOXETINE 30 MG CAPSULE.DR PO SCH (08:38)
[2018-12-08] MEDS: MEGESTROL ACETATE 20 MG TABLET PO SCH ×2 (08:39→16:51)
[2018-12-08] MEDS: PSYLLIUM SEED PACKET PO SCH (08:39)
[2018-12-08] MEDS: MIRALAX 17 GM POWD.PACK PO SCH (08:39)
[2018-12-08] MEDS: TIZANIDINE HCL 4 MG TABLET PO PRN (08:39)
[2018-12-08] MEDS: TIMOLOL MALEATE 0.5% OPHT DROP 5 ML BOTTLE EACHEYE SCH ×2 (08:43→20:09)
[2018-12-08] MEDS: MULTIVITAMINS,THERAPEUTIC TABLET PO SCH (08:43)
[2018-12-08] MEDS: LOSARTAN POTASSIUM 50 MG TABLET PO SCH (08:43)
[2018-12-08] MEDS: METOPROLOL TARTRATE 25 MG TABLET PO SCH ×2 (08:43→16:50)
[2018-12-08] MEDS: FUROSEMIDE 20 MG TABLET PO SCH (08:44)
[2018-12-08] MEDS: LIDOCAINE 5% PATCH TD SCH (08:44)
[2018-12-08] MEDS: AMLODIPINE 5 MG TABLET PO SCH (08:44)
--- NOTE | 2018-12-08 17:41 | NUR ---
Patient continue therapy for ambulation, ADL and transfer activity. Complaint of cold feet this afternoon. warm blanket provided with good effect. BP 114/67. no complaint of pain noted.will continue monitor
[2018-12-08 18:02] VITALS: BP 114/67
[2018-12-08 20:00] VITALS: BP 115/66
[2018-12-08] MEDS: DONEPEZIL 5 MG TABLET PO SCH (20:09)
[2018-12-09] MEDS: PANTOPRAZOLE SODIUM 40 MG TABLET.DR PO SCH (06:14)
[2018-12-09 07:11] VITALS: BP 130/68
[2018-12-09 08:45] VITALS: BP 158/61
[2018-12-09] MEDS: MIRALAX 17 GM POWD.PACK PO SCH (09:04)
[2018-12-09] MEDS: TIMOLOL MALEATE 0.5% OPHT DROP 5 ML BOTTLE EACHEYE SCH ×2 (09:04→20:24)
[2018-12-09] MEDS: LIDOCAINE 5% PATCH TD SCH (09:04)
[2018-12-09] MEDS: AMLODIPINE 5 MG TABLET PO SCH (09:05)
[2018-12-09] MEDS: DULOXETINE 30 MG CAPSULE.DR PO SCH (09:05)
[2018-12-09] MEDS: FUROSEMIDE 20 MG TABLET PO SCH (09:05)
[2018-12-09] MEDS: LOSARTAN POTASSIUM 50 MG TABLET PO SCH (09:06)
[2018-12-09] MEDS: METOPROLOL TARTRATE 25 MG TABLET PO SCH ×2 (09:06→17:16)
[2018-12-09] MEDS: MULTIVITAMINS,THERAPEUTIC TABLET PO SCH (09:06)
[2018-12-09] MEDS: ASPIRIN 81 MG TAB.CHEW PO SCH (09:07)
[2018-12-09] MEDS: CLOPIDOGREL 75 MG TABLET PO SCH (09:07)
[2018-12-09] MEDS: SULFASALAZINE 500 MG TABLET PO SCH ×2 (09:07→17:17)
[2018-12-09] MEDS: DOCUSATE SODIUM 100 MG CAPSULE PO SCH ×2 (09:07→17:16)
[2018-12-09] MEDS: AZATHIOPRINE 50 MG TABLET PO SCH (09:07)
[2018-12-09] MEDS: MEGESTROL ACETATE 20 MG TABLET PO SCH ×2 (09:07→17:18)
[2018-12-09] MEDS: PSYLLIUM SEED PACKET PO SCH (09:07)
--- NOTE | 2018-12-09 16:49 | NUR ---
Received an order from Dr. Beach to remove shook catheter.
[2018-12-09 17:00] VITALS: BP 126/65
[2018-12-09 19:25] VITALS: BP 104/59
--- NOTE | 2018-12-09 19:25 | NUR ---
Patient alert and oriented x 4 and resting in bed. No C/O pain or SOB at this time. Neuro checks in left hand WNL with sensation present in. Hernández D?C in previous shift will monitor for urine output. Bed alarm intact. Assisted with evening ADLs. Call light and frequently used items within reach. Will continue to monitor.
[2018-12-09] MEDS: DONEPEZIL 5 MG TABLET PO SCH (20:24)
[2018-12-10] MEDS: TRAMADOL HCL 50 MG TABLET PO PRN (03:16)
[2018-12-10 04:45] VITALS: BP 112/67
[2018-12-10] MEDS: PANTOPRAZOLE SODIUM 40 MG TABLET.DR PO SCH (06:05)
--- NOTE | 2018-12-10 06:11 | NUR ---
Bladder scan performed after patient used bathroom. <98 mL in bladder per scan. Will continue to monitor.
--- NOTE | 2018-12-10 06:37 | NUR ---
Patient slept well throughout the night. Patient resting comfortably. All due medications given-tolerated well. C/O pain during the night in abdomen. Pain medication given-and pain subsided. Kept clean and dry. All needs attended to promptly. TMS signed by Dr. Beach. Call light and frequently used items within reach. Will endorse to the oncoming shift accordingly.
[2018-12-10 08:08] VITALS: BP 122/53
[2018-12-10] MEDS: TIMOLOL MALEATE 0.5% OPHT DROP 5 ML BOTTLE EACHEYE SCH (08:49)
[2018-12-10] MEDS: ASPIRIN 81 MG TAB.CHEW PO SCH (08:50)
[2018-12-10] MEDS: FUROSEMIDE 20 MG TABLET PO SCH (08:50)
[2018-12-10] MEDS: DULOXETINE 30 MG CAPSULE.DR PO SCH (08:50)
[2018-12-10] MEDS: AMLODIPINE 5 MG TABLET PO SCH (08:50)
[2018-12-10] MEDS: DOCUSATE SODIUM 100 MG CAPSULE PO SCH (08:50)
[2018-12-10] MEDS: MULTIVITAMINS,THERAPEUTIC TABLET PO SCH (08:50)
[2018-12-10] MEDS: CLOPIDOGREL 75 MG TABLET PO SCH (08:50)
[2018-12-10] MEDS: MEGESTROL ACETATE 20 MG TABLET PO SCH (08:53)
[2018-12-10] MEDS: MIRALAX 17 GM POWD.PACK PO SCH (08:54)
[2018-12-10] MEDS: SULFASALAZINE 500 MG TABLET PO SCH (08:54)
[2018-12-10] MEDS: LIDOCAINE 5% PATCH TD SCH (08:54)
[2018-12-10 09:00] VITALS: BP 106/52
[2018-12-10] MEDS: LOSARTAN POTASSIUM 50 MG TABLET PO SCH (09:00)
[2018-12-10] MEDS: METOPROLOL TARTRATE 25 MG TABLET PO SCH (09:00)
[2018-12-10] MEDS: AZATHIOPRINE 50 MG TABLET PO SCH (09:00)
--- NOTE | 2018-12-10 09:00 | NUR ---
Patient awake, alert, in bed, not in any form of acute distress. Due medications administered, patient tolerated well. Assisted patient to the toilet and patient voided freely. Patient has no complain of any discomfort at this time.
[2018-12-10] MEDS: PSYLLIUM SEED PACKET PO SCH (09:49)
--- NOTE | 2018-12-10 13:45 | NUR ---
Received and order from Dr. Ruano for discharge to [facility] with home health for PT/OT/nursing services.
--- NOTE | 2018-12-10 15:00 | NUR ---
Discharge instructions provided to the patient and daughter Gris with verbalized understanding. Discharge papers signed by and provided to the patient. All belongings well accounted for. Patient remains alert, oriented x 3, she denies any pain or discomfort at this time. Discharge photos taken. Medication reconciliation and prescription faxed to patient's pharmacy. Patient picked up by [facility] transportation via [facility]. Patient discharged to [facility].
== END 2018-12-10 15:00 | disposition home health service (06) | DRG 92 ==
PROVIDERS: ADMIT Physical Medicine & Rehabilitation Pain Medicine; ATTEND Physical Medicine & Rehabilitation Pain Medicine
DX: G92 Toxic encephalopathy (principal); D68.59 Other primary thrombophilia; E87.1 Hypo-osmolality and hyponatremia; E44.1 Mild protein-calorie malnutrition; I25.10 Atherosclerotic heart disease of native coronary artery without angina pectoris; R27.0 Ataxia, unspecified; R53.1 Weakness; F03.90 Unspecified dementia, unspecified severity, without behavioral disturbance, psychotic disturbance, mood disturbance, and anxiety; F32.9 Major depressive disorder, single episode, unspecified; M06.9 Rheumatoid arthritis, unspecified; R29.6 Repeated falls; Z91.81 History of falling; D63.8 Anemia in other chronic diseases classified elsewhere; E78.5 Hyperlipidemia, unspecified; E86.1 Hypovolemia; E87.5 Hyperkalemia; G89.29 Other chronic pain; I10 Essential (primary) hypertension; I35.0 Nonrheumatic aortic (valve) stenosis; I70.0 Atherosclerosis of aorta; K59.00 Constipation, unspecified; M19.90 Unspecified osteoarthritis, unspecified site; M81.0 Age-related osteoporosis without current pathological fracture; M43.17 Spondylolisthesis, lumbosacral region; Z98.2 Presence of cerebrospinal fluid drainage device; Z88.0 Allergy status to penicillin
CPT/HCPCS: 36415; 70030-TC; 72100; 82088; 82533; 83735; 84100; 84133; 84244; 85025; 87086; 92523; 92610; 93005; 97110; 97112; 97116; 97530; 97535; J7500; Q0162